=== PATIENT | female | born 1980 | race Caucasian/White ===

== ENCOUNTER 2021-09-23 11:12 | Inpatient (IN) | payer BC, SELFPAY ==
[2021-09-23] VITALS (7 sets, daily range): BP systolic 137–152; BP diastolic 69–75; PULSE 80–103; RESP 15–20; TEMP 37.9–38.5; O2SAT 92–100; BMI 30.8
--- NOTE | ~2021-09-23 | CT_ITS ---
EXAMINATION: CT ABDOMEN AND PELVIS WITHOUT CONTRAST CLINICAL INFORMATION: Left flank pain COMPARISON: None TECHNIQUE: Multidetector volumetric imaging was performed from the superior aspect of the liver through the pubic symphysis. Sagittal and coronal reformatted images were obtained on the technologist's workstation. This CT examination was performed using dose optimization techniques as appropriate, variously including the following: *Automated exposure control *Adjustment of mA and/or kV according to patient size (this includes techniques or standardized protocols for targeted exams where dose is matched to indication/reason for exam; i.e. extremities or head) *Use of iterative reconstruction technique DLP: 685 mGy-cm FINDINGS: LUNG BASES: The visualized lung bases are unremarkable. LIVER, GALLBLADDER, AND BILIARY TREE: The liver is normal in size, shape, and attenuation. There is a 9 mm cyst in hepatic segment 6. No suspicious liver lesions. No intra or extrahepatic biliary ductal dilatation is present. Gallbladder unremarkable. PANCREAS: Unremarkable. SPLEEN: Unremarkable. ADRENAL GLANDS: Unremarkable. KIDNEYS AND URETERS: There is a 4 x 3 mm calculus in the proximal left ureter, near the ureteropelvic junction associated with mild upstream hydronephrosis and perinephric stranding. In addition, there is a 1.7 x 1.6 x 1.4 cm staghorn calculus in the lower pole left kidney, a 4 mm calculus in the mid pole of left kidney and a punctate calculus in the upper pole left kidney. In the right kidney, there are at least 4 nonobstructive intrarenal calculi ranging in size from punctate to 2 mm. BLADDER: Unremarkable. GASTROINTESTINAL TRACT: No intestinal obstruction or inflammation. Submucosal fat deposition throughout the colon. Normal appendix. ABDOMINAL WALL: No significant hernia is appreciated. LYMPH NODES: Normal. VASCULAR: Unremarkable. PELVIC VISCERA: Uterus and adnexa unremarkable. OSSEOUS STRUCTURES: No acute or suspicious osseous abnormalities. CT/CT abdomen pelvis wo con IMPRESSION: * There is a 4 x 3 mm calculus in the proximal LEFT ureter near the ureteropelvic junction associated with mild hydronephrosis and perinephric stranding. * Additional bilateral nonobstructive intrarenal calculi include a 1.7 cm staghorn calculus in the lower pole left kidney. * Nonspecific intramural fatty deposition throughout the colon. This can be seen as a variant finding in the setting of obesity, but can also been seen in association with chronic inflammatory bowel diseases.
--- NOTE | ~2021-09-23 | FL_ITS ---
EXAMINATION: XR FLUOROSCOPY WITH IMAGES CLINICAL INFORMATION: Left ureteroscopy, laser, stent COMPARISON: None. TECHNIQUE: Fluoroscopy performed by Dr. Johnie Reynolds. Fluoroscopy time: 51.8 seconds Images: 1 FINDINGS: The distal aspect of a left ureteral stent is seen on this image. FL/FL guidance in OR IMPRESSION: Fluoroscopic guidance with left ureteral stent placement.
--- NOTE | ~2021-09-23 | XR_ITS ---
EXAMINATION: XR CHEST CLINICAL INFORMATION: Hypoxia COMPARISON: CT abdomen pelvis 09/23/2021 TECHNIQUE: Frontal view of the chest was obtained. FINDINGS: Compared to the prior CT scan, there is been a dramatic change in the appearance of the lungs diffuse airspace opacities involving all segments. Given the rapidity of change I suspect that this may represent pulmonary edema. Heart size within normal limits. No pleural effusions are seen. XR/XR chest 1V IMPRESSION: Diffuse pulmonary airspace opacities suggesting pulmonary edema. Infectious etiologies, although possible, seem less likely given the rapidity of appearance.
--- NOTE | ~2021-09-23 | XR_ITS ---
EXAMINATION: XR CHEST CLINICAL INFORMATION: Short of breath COMPARISON: 09/24/2021 TECHNIQUE: Frontal view of the chest was obtained. FINDINGS: The lungs are well expanded. Bilateral perihilar airspace opacities are again noted, fairly similar to prior. No pleural effusion or pneumothorax. The cardiomediastinal silhouette is within normal limits. XR/XR chest 1V IMPRESSION: Similar appearance of bilateral perihilar airspace opacities.
[2021-09-23 12:35] LABS: Appearance Urine CLOUDY; Color Urine DK YELLOW; Glucose Urine UA NEG (NEG); Leukocyte Esterase Urine 2+ (NEG); Nitrite Urine POS (NEG); Specific Gravity - Urine 1.015 (1.005-1.025); UACC Culture Trigger YES; Urine Blood 3+ (NEG); Urine Ketones NEG (NEG); Urine Protein TRACE MG/DL (NEG-TRACE)
[2021-09-23 12:36] LABS: UPreg QC Valid YES; Urine Pregnancy NEGATIVE (NEGATIVE)
[2021-09-23 12:46] LABS: Bacteria Urine TRACE /LPF; Mucus Urine 2+ /LPF; RBC Urine TNTC /HPF (0); Squamous Epithelial Cell Urine 1+ /LPF
--- NOTE | 2021-09-23 13:14 | ED_ITS ---
HPI - General Adult General Chief complaint: General Medical Stated complaint: kidney stone Time Seen by Provider: 09/23/21 13:05 Source: patient Mode of arrival: ambulatory Limitations: no limitations History of Present Illness HPI narrative: Patient comes to the emergency room complaining of left-sided flank pain for 2-3 days. Patient took azo to help with the pain but she had no relief. Patient has history of kidney stones. Patient states that she cannot tell if she has blood in the urine since she is currently menstruating. Also, patient has been taking Tylenol and ibuprofen but she has had no relief, last dose approximately 7 hours ago. Related Data Allergies Allergy/AdvReac Type Severity Reaction Status Date / Time Iodinated Contrast Media Allergy Unknown Unknown Verified 09/23/21 13:10 Review of Systems Review of Systems: Constitutional : No Weight loss, complaining of chills, No Night Sweats, No Fatigue, No Malaise ENT/Mouth : No Hearing loss, No Ear Pain, No Nasal Congestion, No Sinus Pain, No Hoarseness, No sore throat, No Rhinorrhea, No Swallowing Difficulty Eyes: No Eye Pain, No Swelling, No Redness, No Foreign Body, No Discharge, No Vision Changes Cardiovascular : No Chest Pain, No SOB, No Dyspnea on Exertion, No Orthopnea, No Edema, No Palpitations Respiratory : No Cough, No Sputum, No Wheezing, No Smoke Exposure, No Dyspnea Gastrointestinal : No Nausea, No Vomiting, No Diarrhea, No Constipation, No abdominal Pain, No Hematochezia, No Melena Genitourinary : Currently menstruating, No Dysuria, No Urinary Frequency, unclear if patient has Hematuria due to current menstrual period, No Urinary Incontinence, No Urgency, complaining of bilateral flank pain but more on the left side, No Urinary Flow Changes, No Hesitancy Musculoskeletal : No joint pain, No Myalgias, No Joint Swelling Skin : No Skin Lesions, No rash Neuro : No Weakness, No Numbness, No Paresthesias, No Loss of Consciousness, No Dizziness, No Headache Psych : No Anxiety/Panic, No Depression, No SI/HI/AH/VH, No Social Issues, Heme/Lymph: No Bruising, No Bleeding,No Lymphadenopathy Endocrine : No Polyuria, No Polydipsia, No Temperature Intolerance PMFSH Past Medical History Medical History Kidney stone Social History Social History Advance Directives: Yes Advance Directives Information Provided: Yes Advance Directives on File: No Physical Exam ED Vital Signs: Vital Signs - 24 hr 09/23/21 12:11 Temperature 100.5 F H Pulse Rate 102 H Respiratory Rate 19 Blood Pressure 142/70 H Pulse Oximetry 98 BMI result Body Mass Index 30.8 Const Other: Appearance: Alert. Oriented X3. No acute distress. Eyes: Pupils equal, round and reactive to light. ENT: Pharynx normal. Neck: Normal inspection. Neck supple. No lymph nodes noted. No crepitus CVS: Normal heart rate and rhythm. Pulses normal. Normal S1 and S2 Respiratory: No respiratory distress. Breath sounds normal. No Wheezing. No rales Abdomen: Soft and nontender. No rigidity. No distention. Back: Bilateral flank tenderness Skin: Skin warm and dry. Normal skin color. Normal skin turgor. Extremities: No lower extremity edema. No Lacerations. No Rash Neuro: Oriented X 3. No motor deficit. No sensory deficit. Moving all extremities. No slurred speech. CN 2 through 12 grossly intact Psych: calm, cooperative, normal affect Course Course Course Narrative: So far the urine is positive for UTI. Of patient's labs are pending. Patient is getting IV fluids, Toradol, Tylenol. Patient likely has pyelonephritis, but patient has history of kidney stones, we will go ahead and obtain a CT scan to make sure that she is not passing stones. Patient agrees with plan. I discussed the CT scan with Dr. Reynolds, patient will be admitted, patient had stents tomorrow. Patient will be admitted by Dr. Negron Medical Decision Making Lab Data Result diagrams: 09/23/21 13:20 09/23/21 13:20 Labs: Lab Results 09/23/21 09/23/21 09/23/21 Range/Units 12:15 12:15 13:20 WBC 15.0 H (4.8-10.8) X10*3/uL RBC 4.02 L (4.20-5.50) X10*6/uL Hgb 9.6 L (12.0-16.0) g/dl Hct 31.3 L (37.0-47.0) % MCV 77.9 L (80.0-98.0) fL MCH 23.9 L (27.0-33.0) pg MCHC 30.7 L (31.0-35.0) g/dl RDW 17.6 H (11.0-16.0) % Plt Count 374 (160-400) X10*3/uL MPV 11.3 (9.4-12.3) fL Immature Gran % (Auto) 0.3 (0.0-0.4) % Neut % (Auto) 90.2 H (45-73) % Lymph % (Auto) 4.9 L (20-40) % [place] % (Auto) 4.1 (2-11) % Eos % (Auto) 0.3 (0-4) % Baso % (Auto) 0.2 (0-2) % Lymph # (Auto) 0.7 L (1.2-4.9) X10*3/uL [place] # (Auto) 0.6 (0.1-1.2) X10*3/uL Eos # (Auto) 0.0 (0.0-0.4) X10*3/uL Baso # (Auto) 0.0 (0.0-0.2) X10*3/uL Abs Immat Gran (auto) 0.05 H (0.00-0.03) X10*3/uL Absolute Neuts (auto) 13.5 H (2.0-8.3) x10*3/uL Absolute Nucleated RBC 0.000 (0.0-0.012) X10*3/uL Nucleated RBC % (auto) 0.0 (0.0-0.2) /100WBC Smear Tech's Comments VERIFIED Sodium (135-145) mmol/L Potassium (3.3-5.1) mmol/L Chloride (96-108) mmol/L Carbon Dioxide (22-29) mmol/L Anion Gap (12-20) BUN (9-16) mg/dL Creatinine (0.5-1.4) mg/dL Estim Creat Clear Calc Estimated GFR Random Glucose (60-115) mg/dL Lactic Acid (0.5-2.0) mmol/L Calcium (8.4-10.2) mg/dL Total Bilirubin (0.0-1.0) mg/dL Direct Bilirubin (0.0-0.5) mg/dL AST (5-31) U/L ALT (0-31) U/L Alkaline Phosphatase (39-117) U/L Total Protein (6.5-8.0) g/dL Albumin (3.5-5.0) g/dL Lipase (8-78) U/L Urine Color DK YELLOW Urine Appearance CLOUDY Urine pH 6.0 (5.0-8.0) Ur Specific [place] 1.015 (1.005-1.025) Urine Protein TRACE (NEG-TRACE) MG/DL Urine Glucose (UA) NEG (NEG) MG/DL Urine Ketones NEG (NEG) MG/DL Urine Blood 3+ H (NEG) Urine Nitrite POS H (NEG) Ur Leukocyte Esterase 2+ H (NEG) Urine RBC TNTC H (0) /HPF Urine WBC 15-29 H (0-4) /HPF Ur Squamous Epith Cells 1+ /LPF Urine Bacteria TRACE /LPF Urine Mucus 2+ /LPF Urine Test NEGATIVE (NEGATIVE) 09/23/21 09/23/21 Range/Units 13:20 13:23 WBC (4.8-10.8) X10*3/uL RBC (4.20-5.50) X10*6/uL Hgb (12.0-16.0) g/dl Hct (37.0-47.0) % MCV (80.0-98.0) fL MCH (27.0-33.0) pg MCHC (31.0-35.0) g/dl RDW (11.0-16.0) % Plt Count (160-400) X10*3/uL MPV (9.4-12.3) fL Immature Gran % (Auto) (0.0-0.4) % Neut % (Auto) (45-73) % Lymph % (Auto) (20-40) % [place] % (Auto) (2-11) % Eos % (Auto) (0-4) % Baso % (Auto) (0-2) % Lymph # (Auto) (1.2-4.9) X10*3/uL [place] # (Auto) (0.1-1.2) X10*3/uL Eos # (Auto) (0.0-0.4) X10*3/uL Baso # (Auto) (0.0-0.2) X10*3/uL Abs Immat Gran (auto) (0.00-0.03) X10*3/uL Absolute Neuts (auto) (2.0-8.3) x10*3/uL Absolute Nucleated RBC (0.0-0.012) X10*3/uL Nucleated RBC % (auto) (0.0-0.2) /100WBC Smear Tech's Comments Sodium 138 (135-145) mmol/L Potassium 4.2 (3.3-5.1) mmol/L Chloride 106 (96-108) mmol/L Carbon Dioxide 22 (22-29) mmol/L Anion Gap 14 (12-20) BUN 13 (9-16) mg/dL Creatinine 0.81 (0.5-1.4) mg/dL Estim Creat Clear Calc 98.9 Estimated GFR > 60 Random Glucose 95 (60-115) mg/dL Lactic Acid 0.9 (0.5-2.0) mmol/L Calcium 9.5 (8.4-10.2) mg/dL Total Bilirubin < 0.2 (0.0-1.0) mg/dL Direct Bilirubin < 0.2 (0.0-0.5) mg/dL AST 17 (5-31) U/L ALT 11 (0-31) U/L Alkaline Phosphatase 94 (39-117) U/L Total Protein 7.5 (6.5-8.0) g/dL Albumin 4.4 (3.5-5.0) g/dL Lipase 10 (8-78) U/L Urine Color Urine Appearance Urine pH (5.0-8.0) Ur Specific [place] (1.005-1.025) Urine Protein (NEG-TRACE) MG/DL Urine Glucose (UA) (NEG) MG/DL Urine Ketones (NEG) MG/DL Urine Blood (NEG) Urine Nitrite (NEG) Ur Leukocyte Esterase (NEG) Urine RBC (0) /HPF Urine WBC (0-4) /HPF Ur Squamous Epith Cells /LPF Urine Bacteria /LPF Urine Mucus /LPF Urine Test (NEGATIVE) Imaging Data US - abdomen: Radiologist's impression: DLP: 685 mGy-cm FINDINGS: LUNG BASES: The visualized lung bases are unremarkable.? LIVER, GALLBLADDER, AND BILIARY TREE: The liver is normal in size, shape, and attenuation. There is a 9 mm cyst in hepatic segment 6. No suspicious liver lesions. No intra or extrahepatic biliary ductal dilatation is present. Gallbladder unremarkable.? PANCREAS: Unremarkable.? SPLEEN: Unremarkable.? ADRENAL GLANDS: Unremarkable.? KIDNEYS AND URETERS: There is a 4 x 3 mm calculus in the proximal left ureter, near the ureteropelvic junction associated with mild upstream hydronephrosis and perinephric stranding. In addition, there is a 1.7 x 1.6 x 1.4 cm staghorn calculus in the lower pole left kidney, a 4 mm calculus in the mid pole of left kidney and a punctate calculus in the upper pole left kidney. In the right kidney, there are at least 4 nonobstructive intrarenal calculi ranging in size from punctate to 2 mm.? BLADDER: Unremarkable.? GASTROINTESTINAL TRACT: No intestinal obstruction or inflammation. Submucosal fat deposition throughout the colon. Normal appendix.? ABDOMINAL WALL: No significant hernia is appreciated.? LYMPH NODES: Normal. VASCULAR: Unremarkable. PELVIC VISCERA: Uterus and adnexa unremarkable.? OSSEOUS STRUCTURES: No acute or suspicious osseous abnormalities.? CT/CT abdomen pelvis wo con IMPRESSION: *? There is a 4 x 3 mm calculus in the proximal LEFT ureter near the ureteropelvic junction associated with mild hydronephrosis and perinephric stranding. *? Additional bilateral nonobstructive intrarenal calculi include a 1.7 cm staghorn calculus in the lower pole left kidney. *? Nonspecific intramural fatty deposition throughout the colon. This can be seen as a variant finding in the setting of obesity, but can also been seen in association with chronic inflammatory bowel diseases. Discharge Plan Discharge Clinical Impression: Pyelonephritis, Ureterolithiasis Patient Disposition: Admitted As Inpatient
[2021-09-23] MEDS: Ketorolac Tromethamine 30 MG/ML VIAL IVPUSH (13:28)
[2021-09-23] MEDS: Acetaminophen 325 MG TABLET 650 MG PO ×2 (13:28→21:38)
[2021-09-23] MEDS: levoFLOXacin 500 MG TABLET PO (13:29)
[2021-09-23] MEDS: 0.9 % Sodium Chloride 1,000 ML 999 ML IVCONT (13:30)
[2021-09-23 13:32] LABS: Basophils Percent Auto 0.2 % (0-2); Eosinophils Percent Auto 0.3 % (0-4); Hematocrit 31.3 % (37.0-47.0); Hemoglobin 9.6 g/dl (12.0-16.0); Imm Gran Abs Auto 0.05 X10*3/uL (0.00-0.03); Imm Gran Pct Auto 0.3 % (0.0-0.4); Lymphocytes Absolute Auto 0.7 X10*3/uL (1.2-4.9); Lymphocytes Percent Auto 4.9 % (20-40); MANUAL DIFF FLAG SCAN; Mean Corpuscular HGB Conc 30.7 g/dl (31.0-35.0); Mean Corpuscular Hemoglobin 23.9 pg (27.0-33.0); Mean Corpuscular Volume 77.9 fL (80.0-98.0); Mean Platelet Volume 11.3 fL (9.4-12.3); Monocytes Absolute Auto 0.6 X10*3/uL (0.1-1.2); Monocytes Percent Auto 4.1 % (2-11); Neutrophils Absolute Auto 13.5 x10*3/uL (2.0-8.3); Neutrophils Percent Auto 90.2 % (45-73); Platelet Count 374 X10*3/uL (160-400); Red Blood Count 4.02 X10*6/uL (4.20-5.50); Red Cell Distribution Width 17.6 % (11.0-16.0); SCAN SMEAR FLAG 1
[2021-09-23 13:51] LABS: Lactic Acid 0.9 mmol/L (0.5-2.0)
[2021-09-23 14:01] LABS: Alanine Aminotransferase 11 U/L (0-31); Albumin Level 4.4 g/dL (3.5-5.0); Alkaline Phosphatase 94 U/L (39-117); Anion Gap 14 (12-20); Aspartate Amino Transferase 17 U/L (5-31); Bilirubin Direct < 0.2 mg/dL (0.0-0.5); Bilirubin Total < 0.2 mg/dL (0.0-1.0); Blood Urea Nitrogen 13 mg/dL (9-16); Calcium 9.5 mg/dL (8.4-10.2); Carbon Dioxide 22 mmol/L (22-29); Chloride 106 mmol/L (96-108); Creatinine Clr Calc Pharmacy 98.9; Estimated Glomerular Filt Rate > 60; Glucose Random 95 mg/dL (60-115); Lipase 10 U/L (8-78); Potassium 4.2 mmol/L (3.3-5.1); Sodium 138 mmol/L (135-145); Total Protein 7.5 g/dL (6.5-8.0)
[2021-09-23 14:31] LABS: SLIDE REVIEW VERIFIED
--- NOTE | 2021-09-23 16:40 | PHA.MEDREC ---
Pharmacy Consult ? Medication Reconciliation Pharmacy has completed the medication reconciliation.
--- NOTE | 2021-09-23 17:10 | PM.IMHP ---
History of Present Illness Date of Service: 09/23/21 Chief Complaint: Back pain, fever a 40 years old healthy lady who presents to the hospital with left-sided flank pain for the last 3 days. The patient reports that she started to colicky left-sided slowing and back pain for the last 3 days which has been progressive associated with nausea and episode of vomiting with subjective fever that turned to be above 100 today. She reported is the 1st time she is going through with this event but she had passed stones before with much lower pain level. She tried [id number] Tylenol and Advil with no improvement. In the emergency she was fine febrile, tachycardic with evidence of urine infection. CT scan was consistent with to stones in her left ureter and evidence of pyelonephritis. Started IV antibiotics admitted for further evaluation. Review of Systems Review of Systems: Reporting fever, chills and generalized weakness No chest pain, palpitation No shortness of breath or coughing No abdominal pain, nausea or vomiting having left-sided low in and back pain with no clear urinary symptoms No any rash or wounds PMFSH Medical History Kidney stone Social History Advance Directives: Yes Advance Directives Information Provided: Yes Advance Directives on File: No Meds Allergies Allergy/AdvReac Type Severity Reaction Status Date / Time Iodinated Contrast Media Allergy Unknown Unknown Verified 09/23/21 13:10 Active Medications: Current Medications Pharmacy Consult (Consult Rx Perform Med Rec) 1 each MISCELLANE ONCE PRN PRN Reason: Consult order Home Medications Medication Instructions Recorded Confirmed Last Taken Type No Known Home Meds 09/23/21 09/23/21 Unknown History Physical Exam Vital Signs and Narrative: Vital Signs: Last Vital Signs Temp 100.5 F H 09/23/21 12:11 Pulse 102 H 09/23/21 12:11 Resp 19 09/23/21 12:11 BP 142/70 H 09/23/21 12:11 Pulse Ox 98 09/23/21 12:11 BMI result Body Mass Index 30.8 Const: Other: Constitutional : Alert, oriented, not in distress Neck : Normal inspection, Supple Cardiovascular : RRR, no JVP, no lower extremity edema, tachycardia Respiratory : fair bilateral air entry, no crackles, wheezes or rhonchi Gastrointestinal: soft, lax, Normal bowel sounds, Non tender Skin : Warm, Dry Urology: positive CVA tenderness Neurological : Alert & oriented x3, No focal deficit , CN 2-12 within normal Results Labs CBC and Chem 7: 09/23/21 13:20 09/23/21 13:20 Labs: Laboratory Results - last 24 hr 09/23/21 09/23/21 09/23/21 12:15 12:15 13:20 MCV 77.9 L MCH 23.9 L MCHC 30.7 L RDW 17.6 H Plt Count 374 MPV 11.3 Immature Gran % (Auto) 0.3 Neut % (Auto) 90.2 H Lymph % (Auto) 4.9 L [place] % (Auto) 4.1 Eos % (Auto) 0.3 Baso % (Auto) 0.2 Lymph # (Auto) 0.7 L [place] # (Auto) 0.6 Eos # (Auto) 0.0 Baso # (Auto) 0.0 Abs Immat Gran (auto) 0.05 H Absolute Neuts (auto) 13.5 H Absolute Nucleated RBC 0.000 Nucleated RBC % (auto) 0.0 Smear Tech's Comments VERIFIED Anion Gap Estim Creat Clear Calc Estimated GFR Random Glucose Lactic Acid Calcium Total Bilirubin Direct Bilirubin AST ALT Alkaline Phosphatase Total Protein Albumin Lipase Urine Color DK YELLOW Urine Appearance CLOUDY Urine pH 6.0 Ur Specific [place] 1.015 Urine Protein TRACE Urine Glucose (UA) NEG Urine Ketones NEG Urine Blood 3+ H Urine Nitrite POS H Ur Leukocyte Esterase 2+ H Urine RBC TNTC H Urine WBC 15-29 H Ur Squamous Epith Cells 1+ Urine Bacteria TRACE Urine Mucus 2+ Urine Test NEGATIVE 09/23/21 09/23/21 13:20 13:23 MCV MCH MCHC RDW Plt Count MPV Immature Gran % (Auto) Neut % (Auto) Lymph % (Auto) [place] % (Auto) Eos % (Auto) Baso % (Auto) Lymph # (Auto) [place] # (Auto) Eos # (Auto) Baso # (Auto) Abs Immat Gran (auto) Absolute Neuts (auto) Absolute Nucleated RBC Nucleated RBC % (auto) Smear Tech's Comments Anion Gap 14 Estim Creat Clear Calc 98.9 Estimated GFR > 60 Random Glucose 95 Lactic Acid 0.9 Calcium 9.5 Total Bilirubin < 0.2 Direct Bilirubin < 0.2 AST 17 ALT 11 Alkaline Phosphatase 94 Total Protein 7.5 Albumin 4.4 Lipase 10 Urine Color Urine Appearance Urine pH Ur Specific [place] Urine Protein Urine Glucose (UA) Urine Ketones Urine Blood Urine Nitrite Ur Leukocyte Esterase Urine RBC Urine WBC Ur Squamous Epith Cells Urine Bacteria Urine Mucus Urine Test Imaging Radiologist's Impressions: Impressions Abdomen/Pelvis CT 09/23/21 14:29 IMPRESSION: * There is a 4 x 3 mm calculus in the proximal LEFT ureter near the ureteropelvic junction associated with mild hydronephrosis and perinephric stranding. * Additional bilateral nonobstructive intrarenal calculi include a 1.7 cm staghorn calculus in the lower pole left kidney. * Nonspecific intramural fatty deposition throughout the colon. This can be seen as a variant finding in the setting of obesity, but can also been seen in association with chronic inflammatory bowel diseases. Assessment and Plan (1) Sepsis: Status: Acute (2) Pyelonephritis: Status: Acute (3) Ureterolithiasis: Status: Acute (4) Hydronephrosis of left kidney: Status: Acute Plan a 40 years old healthy lady who presents to the hospital with left-sided flank pain for the last 3 days. Sepsis secondary to pyelonephritis Fever, tachycardia and leukocytosis Negative lactic acid pending cultures Continue IV antibiotics of Levaquin hydronephrosis with ureteric stone CT scan reporting staghorn stone and a smaller rounded stone Discussed with Urology, to keep the patient NPO for possible stent placement tomorrow anemia Hemoglobin of 9.6 with low MCV Check iron studies DVT PPX Early ambulation Quality Stroke Does the patient have a stroke diagnosis?: No VTE Prior VTE?: No VTE Risk Level:: Medical - low VTE Device Contraindication: Treatment Not Indicated VTE Drug Contraindication: Treatment Not Indicated
[2021-09-23 18:14] LABS: Iron 15 mcg/dL (30-160); Percent Iron Saturation 4 % (15-50); Total Iron Binding Capacity 420 mcg/dL (228-428); Unsaturated Iron Binding 405 ug/dL
--- NOTE | 2021-09-23 18:32 | PC.NURSE ---
provider made aware of temp 101.3. Awaiting further orders.
[2021-09-23] MEDS: Ketorolac Tromethamine 30 MG/ML VIAL 15 MG IVPUSH (18:49)
[2021-09-23 18:52] LABS: COVID-19 Test Negative (Negative)
--- NOTE | 2021-09-23 20:14 | MHC.CM.PN ---
CM met with admitted patient with bed assignment pending. 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 [employer]. No HCP on file. HCP/ Xu Adam ([phone]). Copy requested. Lives with and son. No DME or services. D/C plan: Home without services. Family to transport. CM to follow for d/c needs.
--- NOTE | 2021-09-23 23:51 | PC.NURSE ---
Report given to FATUMA Bishop on .
[2021-09-24] VITALS (32 sets, daily range): BP systolic 97–191; BP diastolic 51–82; PULSE 78–158; RESP 16–36; TEMP 35.9–39.5; O2SAT 92–100
[2021-09-24] MEDS: 0.9 % Sodium Chloride Flush 3 ML SYRINGE IVFLUSH ×2 (02:15→09:21)
[2021-09-24] MEDS: Acetaminophen Oral Liquid 650 MG/20.3 ML SOLUTION PO (03:31)
[2021-09-24] MEDS: Ketorolac Tromethamine 30 MG/ML VIAL 15 MG IVPUSH ×3 (03:35→18:49)
--- NOTE | 2021-09-24 03:56 | PC.NURSE ---
Pt on scheduled tylenol po q 6 hr.Pt requesting liquid tylenol beacause tablets make her nauseous. notified changed tylenol to lquid form.given at 0330 for temp-101.9.
--- NOTE | 2021-09-24 05:16 | PC.NURSE ---
temp down to 97.1 orally
[2021-09-24 05:47] LABS: Hematocrit 28.1 % (37.0-47.0); Hemoglobin 8.8 g/dl (12.0-16.0); Mean Corpuscular HGB Conc 31.3 g/dl (31.0-35.0); Mean Corpuscular Hemoglobin 24.1 pg (27.0-33.0); Mean Platelet Volume 11.3 fL (9.4-12.3); Platelet Count 325 X10*3/uL (160-400); Red Blood Count 3.65 X10*6/uL (4.20-5.50); Red Cell Distribution Width 17.3 % (11.0-16.0); White Blood Count 13.4 X10*3/uL (4.8-10.8)
[2021-09-24 06:05] LABS: Anion Gap 13 (12-20); Blood Urea Nitrogen 11 mg/dL (9-16); Calcium 8.8 mg/dL (8.4-10.2); Carbon Dioxide 21 mmol/L (22-29); Chloride 106 mmol/L (96-108); Creatinine Clr Calc Pharmacy 89.9; Estimated Glomerular Filt Rate > 60; Glucose Random 141 mg/dL (60-115); Potassium 3.8 mmol/L (3.3-5.1); Sodium 136 mmol/L (135-145)
--- NOTE | 2021-09-24 12:38 | P.CNUR_ITS ---
History of Present Illness Consult details Consult date: 09/24/21 Narrative: Chaka is a pleasant female. Presents with left-sided flank pain inability to maintain oral intake CT scan shows collection of stones in left side with left UPJ stone Has been diagnosed with stones since 2016 No prior intervention Family history of stones Given current state of symptoms and imaging findings would recommend intervention with left-sided ureteroscopy and laser lithotripsy Review of Systems Constitutional: Constitutional: Denies chills and Denies fever(s) Cardiovascular: Cardiovascular: Reports no additional cardiovascular complaints and Denies syncope Respiratory: Respiratory: Denies cough Gastrointestinal: Gastrointestinal: Denies abdominal pain and Denies heartburn Genitourinary: Genitourinary: Reports as per HPI and Denies change in libido Neurologic: Denies syncope Psychiatric: Psychiatric: Denies change in libido Endocrine: Endocrine: Denies change in libido COUNT INCLUDES THE [facility] Past Medical History Medical History Kidney stone Social History Social History Household Members: Family Housing: House Do you presently have visiting nurse or other home services: No Patient Tobacco Use Status: Never used Tobacco Advance Directives Date on File: 09/24/21 service: No Current occupational status: employed Meds Allergies Allergy/AdvReac Type Severity Reaction Status Date / Time Iodinated Contrast Media Allergy Unknown Unknown Verified 09/23/21 13:10 Latex, Natural Rubber Allergy Unknown Verified 09/24/21 03:48 shell fish Allergy Unknown Uncoded 09/24/21 03:48 Active Medications: Current Medications Acetaminophen (Acetaminophen Oral Liquid 650 Mg/20.3 Ml Solution) 650 mg PO Q6H PRN PRN Reason: Pain, Severe (Pain Scale 7-10) Last Admin: 09/24/21 03:31 Dose: 650 mg Documented by: Ferrous Sulfate (Ferrous Sulfate 324 Mg Tablet.Dr) 324 mg PO BIDWM [facility] Ketorolac Tromethamine (Ketorolac Tromethamine 30 Mg/Ml Vial) 15 mg IVPUSH Q6H PRN PRN Reason: Pain, Moderate (Pain Scale 4-6 Stop: 09/28/21 17:06 Last Admin: 09/24/21 09:23 Dose: 15 mg Documented by: Ondansetron HCl (Ondansetron Hcl 4 Mg/2 Ml Vial) 4 mg IVPUSH Q8H PRN PRN Reason: Nausea and Vomiting Pharmacy Consult (Consult Rx Perform Med Rec) 1 each MISCELLANE ONCE PRN PRN Reason: Consult order Sodium Chloride (0.9 % Sodium Chloride Flush 3 Ml Syringe) 3 ml LAUREN PONCE [facility] Last Admin: 09/24/21 09:21 Dose: 3 ml Documented by: Home Medications Medication Instructions Recorded Confirmed Last Taken Type No Known Home Meds 09/23/21 09/23/21 Unknown History Physical Exam Vital Signs: Vital Signs: Last Vital Signs Temp 98.5 F 09/24/21 11:48 Pulse 120 H 09/24/21 11:48 Resp 18 09/24/21 11:48 BP 135/64 09/24/21 11:48 Pulse Ox 100 09/24/21 11:48 BMI result Body Mass Index 30.8 Const: General: cooperative, healthy appearing, comfortable and no acute distress Orientation/consciousness: patient oriented x3 HEENT: Face and sinus: Yes normal facial exam Mouth: moist mucous membranes Neck: Neck: Yes normal visual inspection, Yes full ROM and Yes trachea midline Chest: Chest palpation & inspection: normal inspection of the chest Resp: Effort & Inspection: normal respiratory effort, able to speak in complete sentences and no respiratory distress GI: Inspection: Yes normal to inspection Back/Spine/Pelvis: Cervical Spine: normal cervical lordosis Thoracic/Lumbar Spine: thoracic and lumbar spine normal to inspection Skin: General skin exam: no rashes or lesions noted Neuro: General: patient oriented x3, gait normal, tone normal and moves all extremities Extrem: General: Yes normal to inspection and Yes capillary refill normal Results Labs Result diagrams: 09/24/21 05:12 09/24/21 05:12 Labs: Abnormal lab results 09/23/21 09/23/21 09/23/21 Range/Units 12:15 13:20 13:20 WBC 15.0 H (4.8-10.8) X10*3/uL RBC 4.02 L (4.20-5.50) X10*6/uL Hgb 9.6 L (12.0-16.0) g/dl Hct 31.3 L (37.0-47.0) % MCV 77.9 L (80.0-98.0) fL MCH 23.9 L (27.0-33.0) pg MCHC 30.7 L (31.0-35.0) g/dl RDW 17.6 H (11.0-16.0) % Neut % (Auto) 90.2 H (45-73) % Lymph % (Auto) 4.9 L (20-40) % Lymph # (Auto) 0.7 L (1.2-4.9) X10*3/uL Abs Immat Gran (auto) 0.05 H (0.00-0.03) X10*3/uL Absolute Neuts (auto) 13.5 H (2.0-8.3) x10*3/uL Carbon Dioxide (22-29) mmol/L Random Glucose (60-115) mg/dL Iron 15 L (30-160) mcg/dL % Saturation 4 L (15-50) % Urine Blood 3+ H (NEG) Urine Nitrite POS H (NEG) Ur Leukocyte Esterase 2+ H (NEG) Urine RBC TNTC H (0) /HPF Urine WBC 15-29 H (0-4) /HPF 09/24/21 09/24/21 Range/Units 05:12 05:12 WBC 13.4 H (4.8-10.8) X10*3/uL RBC 3.65 L (4.20-5.50) X10*6/uL Hgb 8.8 L (12.0-16.0) g/dl Hct 28.1 L (37.0-47.0) % MCV 77.0 L (80.0-98.0) fL MCH 24.1 L (27.0-33.0) pg MCHC (31.0-35.0) g/dl RDW 17.3 H (11.0-16.0) % Neut % (Auto) (45-73) % Lymph % (Auto) (20-40) % Lymph # (Auto) (1.2-4.9) X10*3/uL Abs Immat Gran (auto) (0.00-0.03) X10*3/uL Absolute Neuts (auto) (2.0-8.3) x10*3/uL Carbon Dioxide 21 L (22-29) mmol/L Random Glucose 141 H (60-115) mg/dL Iron (30-160) mcg/dL % Saturation (15-50) % Urine Blood (NEG) Urine Nitrite (NEG) Ur Leukocyte Esterase (NEG) Urine RBC (0) /HPF Urine WBC (0-4) /HPF Short CBC 09/23/21 09/24/21 Range/Units 13:20 05:12 WBC 15.0 H 13.4 H (4.8-10.8) X10*3/uL Hgb 9.6 L 8.8 L (12.0-16.0) g/dl Hct 31.3 L 28.1 L (37.0-47.0) % Plt Count 374 325 (160-400) X10*3/uL BMP 09/23/21 09/24/21 13:20 05:12 Sodium 138 136 Potassium 4.2 3.8 Chloride 106 106 Carbon Dioxide 22 21 L BUN 13 11 Creatinine 0.81 0.89 Calcium 9.5 8.8 D Liver Function 09/23/21 Range/Units 13:20 Total Bilirubin < 0.2 (0.0-1.0) mg/dL Direct Bilirubin < 0.2 (0.0-0.5) mg/dL AST 17 (5-31) U/L ALT 11 (0-31) U/L Alkaline Phosphatase 94 (39-117) U/L Albumin 4.4 (3.5-5.0) g/dL Urine 09/23/21 09/23/21 Range/Units 12:15 12:15 Urine Color DK YELLOW Urine Appearance CLOUDY Urine pH 6.0 (5.0-8.0) Ur Specific [place] 1.015 (1.005-1.025) Urine Protein TRACE (NEG-TRACE) MG/DL Urine Glucose (UA) NEG (NEG) MG/DL Urine Test NEGATIVE (NEGATIVE) All other labs normal. Assessment and Plan (1) Hydronephrosis of left kidney: Status: Acute (2) Ureterolithiasis: Status: Acute Plan Ureteroscopy We discussed the nature of the decision and reasonable alternatives for performing the above surgery. Interventions include chemical dissolution, ESWL, ureteroscopy with laser lithotripsy and stent placement, PCNL. Options such as medical therapy were discussed. The relative uncertainties and benefits related to each alternate procedure were adequately discussed. General surgical risks including, but not limited to, pain, bleeding, infection, myocardial infarction, pulmonary embolus, deep vein thrombosis and cerebrovascular accident which may result in further hospitalization were discussed. Full disclosure of the procedure as well as all major risks, benefits and complications were discussed including but not limited to damage to the urethra, bladder and kidney infection, damage to the ureter, stent migration or malposition, scarring to the renal pelvis, remnant stone fragments, subsequent stone passage with need for secondary procedures. The overall secondary procedure rate is approximately 10-15%. The success rate of the procedure was discussed. Success of the procedure in the short-term does not necessarily guarantee that long-term success will be maintained. Suitable follow up will need to be maintained. The patient showed understanding of discussion and wishes to proceed with - cystoscopy, retrograde, ureteroscopy, possible lithotripsy/stone basketing and stent on the left side Procedures Date of Service Date of Service: 09/24/21
--- NOTE | 2021-09-24 12:40 | MHC.SHP ---
Pre-Procedural Eval Section A Date of Service: 09/24/21 The patient is an INPATIENT: Yes Changes since office visit: No Cold of Flu in the past 2 weeks, No New Medical Problems, No Changes in Medication and No Patient answered all questions The History & Physical has been completed within 30 days and I have reviewed it.: Yes Section B Chief Complaint: back pain,fever Allergies: Allergies Allergy/AdvReac Type Severity Reaction Status Date / Time Iodinated Contrast Media Allergy Unknown Unknown Verified 09/23/21 13:10 Latex, Natural Rubber Allergy Unknown Verified 09/24/21 03:48 shell fish Allergy Unknown Uncoded 09/24/21 03:48 Plan Diagnosis/Plan: Unchanged ( cystoscopy, left retrograde, left ureteroscopy with laser lithotripsy stent placement) I have reviewed the history and physical and performed a pertinent physical examination on my patient. No changes have occurred unless specified.
--- NOTE | 2021-09-24 12:51 | HO.PM.IMPN ---
Subjective Subjective Date of Service: 09/24/21 Interval History: the patient was seen and evaluated this morning Laying in bed, Pain is better controlled She spiked fever overnight with doing better this morning No reported other overnight events. Review of Systems Reporting fever, chills and generalized weakness No chest pain, palpitation No shortness of breath or coughing No abdominal pain, nausea or vomiting improved left-sided low in and back pain with no clear urinary symptoms No any rash or wounds Physical Exam Vital Signs: Vital Signs: Last Vital Signs Temp 99.1 F 09/24/21 12:41 Pulse 106 H 09/24/21 12:41 Resp 16 09/24/21 12:41 BP 154/71 H 09/24/21 12:41 Pulse Ox 100 09/24/21 12:41 BMI result Body Mass Index 30.8 Const: Other: Constitutional : Alert, oriented, not in distress Neck : Normal inspection, Supple Cardiovascular : RRR, no JVP, no lower extremity edema, tachycardia Respiratory : fair bilateral air entry, no crackles, wheezes or rhonchi Gastrointestinal: soft, lax, Normal bowel sounds, Non tender Skin : Warm, Dry Urology: positive CVA tenderness Neurological : Alert & oriented x3, No focal deficit , CN 2-12 within normal Objective Data Active Medications Acetaminophen (Acetaminophen Oral Liquid 650 Mg/20.3 Ml Solution) 650 mg PO Q6H PRN PRN Reason: Pain, Severe (Pain Scale 7-10) Last Admin: 09/24/21 03:31 Dose: 650 mg Documented by: GRETA Ferrous Sulfate (Ferrous Sulfate 324 Mg Tablet.Dr) 324 mg PO BIDWM [facility] Ketorolac Tromethamine (Ketorolac Tromethamine 30 Mg/Ml Vial) 15 mg IVPUSH Q6H PRN PRN Reason: Pain, Moderate (Pain Scale 4-6 Stop: 09/28/21 17:06 Last Admin: 09/24/21 09:23 Dose: 15 mg Documented by: ALLI Ondansetron HCl (Ondansetron Hcl 4 Mg/2 Ml Vial) 4 mg IVPUSH Q8H PRN PRN Reason: Nausea and Vomiting Pharmacy Consult (Consult Rx Perform Med Rec) 1 each MISCELLANE ONCE PRN PRN Reason: Consult order Sodium Chloride (0.9 % Sodium Chloride Flush 3 Ml Syringe) [facility] Last Admin: 09/24/21 09:21 Dose: 3 ml Documented by: ALLI Labs CBC & Chem 7: 09/24/21 05:12 09/24/21 05:12 Labs: Laboratory Results - last 24 hr 09/23/21 09/23/21 09/23/21 13:20 13:20 13:23 MCV 77.9 L MCH 23.9 L MCHC 30.7 L RDW 17.6 H Plt Count 374 MPV 11.3 Immature Gran % (Auto) 0.3 Neut % (Auto) 90.2 H Lymph % (Auto) 4.9 L [place] % (Auto) 4.1 Eos % (Auto) 0.3 Baso % (Auto) 0.2 Lymph # (Auto) 0.7 L [place] # (Auto) 0.6 Eos # (Auto) 0.0 Baso # (Auto) 0.0 Abs Immat Gran (auto) 0.05 H Absolute Neuts (auto) 13.5 H Absolute Nucleated RBC 0.000 Nucleated RBC % (auto) 0.0 Smear Tech's Comments VERIFIED Anion Gap 14 Estim Creat Clear Calc 98.9 Estimated GFR > 60 Random Glucose 95 Lactic Acid 0.9 Calcium 9.5 Iron 15 L TIBC 420 % Saturation 4 L Unsat Iron Binding 405 Total Bilirubin < 0.2 Direct Bilirubin < 0.2 AST 17 ALT 11 Alkaline Phosphatase 94 Total Protein 7.5 Albumin 4.4 Lipase 10 COVID-19 ([facility]) COVID-19 Clin Com 09/23/21 09/24/21 09/24/21 18:21 05:12 05:12 MCV 77.0 L MCH 24.1 L MCHC 31.3 RDW 17.3 H Plt Count 325 MPV 11.3 Immature Gran % (Auto) Neut % (Auto) Lymph % (Auto) [place] % (Auto) Eos % (Auto) Baso % (Auto) Lymph # (Auto) [place] # (Auto) Eos # (Auto) Baso # (Auto) Abs Immat Gran (auto) Absolute Neuts (auto) Absolute Nucleated RBC 0.000 Nucleated RBC % (auto) 0.0 Smear Tech's Comments Anion Gap 13 Estim Creat Clear Calc 89.9 Estimated GFR > 60 Random Glucose 141 H Lactic Acid Calcium 8.8 D Iron TIBC % Saturation Unsat Iron Binding Total Bilirubin Direct Bilirubin AST ALT Alkaline Phosphatase Total Protein Albumin Lipase COVID-19 ([facility]) Negative COVID-19 Clin Com See Note Microbiology Microbiology Results: Microbiology 09/23/21 00:00 Urine Culture - Preliminary Urine clean catch - Urine mack top Assessment and Plan (1) Hydronephrosis of left kidney: Status: Acute (2) Sepsis: Status: Acute (3) Pyelonephritis: Status: Acute Plan a 40 years old healthy lady who presents to the hospital with left-sided flank pain for the last 3 days. Sepsis, resolved secondary to pyelonephritis pending cultures Continue IV antibiotics of Levaquin hydronephrosis with ureteric stone CT scan reporting staghorn stone and a smaller rounded stone Urology, Will for cystoscopy and stent placement tomorrow iron deficiency anemia Hemoglobin of 9.6 with low MCV low iron stores Start p.o. ferrous sulfate DVT PPX Early ambulation Quality Stroke Does the patient have a stroke diagnosis?: No VTE Prior VTE?: No VTE Risk Level:: Medical - low VTE Device Contraindication: Treatment Not Indicated VTE Drug Contraindication: Treatment Not Indicated
--- NOTE | 2021-09-24 12:57 | HO.ANESPROP2 ---
[facility] Active Problems Active Problems: All Active Problems (Updated 09/23/21 @ 17:45 by Cher Negron MD) Hydronephrosis of left kidney (Acute) Sepsis (Acute) Pyelonephritis (Acute) Ureterolithiasis (Acute) anemia Past Medical History Medical History Kidney stone Surgical History History of Problems with Anesthesia: No Social History Social History Household Members: Family Housing: House Do you presently have visiting nurse or other home services: No Patient Tobacco Use Status: Never used Tobacco Advance Directives Date on File: 09/24/21 service: No Current occupational status: employed Meds Allergies Allergy/AdvReac Type Severity Reaction Status Date / Time Iodinated Contrast Media Allergy Unknown Unknown Verified 09/23/21 13:10 Latex, Natural Rubber Allergy Unknown Verified 09/24/21 03:48 shell fish Allergy Unknown Uncoded 09/24/21 03:48 Active Medications: Current Medications Acetaminophen (Acetaminophen Oral Liquid 650 Mg/20.3 Ml Solution) 650 mg PO Q6H PRN PRN Reason: Pain, Severe (Pain Scale 7-10) Last Admin: 09/24/21 03:31 Dose: 650 mg Documented by: Ferrous Sulfate (Ferrous Sulfate 324 Mg Tablet.Dr) 324 mg PO BIDWM [facility] Ketorolac Tromethamine (Ketorolac Tromethamine 30 Mg/Ml Vial) 15 mg IVPUSH Q6H PRN PRN Reason: Pain, Moderate (Pain Scale 4-6 Stop: 09/28/21 17:06 Last Admin: 09/24/21 09:23 Dose: 15 mg Documented by: Ondansetron HCl (Ondansetron Hcl 4 Mg/2 Ml Vial) 4 mg IVPUSH Q8H PRN PRN Reason: Nausea and Vomiting Pharmacy Consult (Consult Rx Perform Med Rec) 1 each MISCELLANE ONCE PRN PRN Reason: Consult order Sodium Chloride (0.9 % Sodium Chloride Flush 3 Ml Syringe) [facility] Last Admin: 09/24/21 09:21 Dose: 3 ml Documented by: Home Medications Medication Instructions Recorded Confirmed Last Taken Type No Known Home Meds 09/23/21 09/23/21 Unknown History Exam Exam Date and Time: September 24, 2021 1257 Height,Weight and Vital Signs: Height 5 ft 5 in Weight 84.1 kg Last Vital Signs Temp 99.1 F 09/24/21 12:41 Pulse 106 H 09/24/21 12:41 Resp 16 09/24/21 12:41 BP 154/71 H 09/24/21 12:41 Pulse Ox 100 09/24/21 12:41 Pertinent Lab Results Pertinent Lab Results: Laboratory Tests 09/23/21 09/23/21 09/23/21 12:15 12:15 13:20 WBC 15.0 H RBC 4.02 L Hgb 9.6 L Hct 31.3 L MCV 77.9 L MCH 23.9 L MCHC 30.7 L RDW 17.6 H Plt Count 374 MPV 11.3 Immature Gran % (Auto) 0.3 Neut % (Auto) 90.2 H Lymph % (Auto) 4.9 L [place] % (Auto) 4.1 Eos % (Auto) 0.3 Baso % (Auto) 0.2 Lymph # (Auto) 0.7 L [place] # (Auto) 0.6 Eos # (Auto) 0.0 Baso # (Auto) 0.0 Abs Immat Gran (auto) 0.05 H Absolute Neuts (auto) 13.5 H Absolute Nucleated RBC 0.000 Nucleated RBC % (auto) 0.0 Smear Tech's Comments VERIFIED Sodium Potassium Chloride Carbon Dioxide Anion Gap BUN Creatinine Estim Creat Clear Calc Estimated GFR Random Glucose Lactic Acid Calcium Iron TIBC % Saturation Unsat Iron Binding Total Bilirubin Direct Bilirubin AST ALT Alkaline Phosphatase Total Protein Albumin Lipase Urine Color DK YELLOW Urine Appearance CLOUDY Urine pH 6.0 Ur Specific [place] 1.015 Urine Protein TRACE Urine Glucose (UA) NEG Urine Ketones NEG Urine Blood 3+ H Urine Nitrite POS H Ur Leukocyte Esterase 2+ H Urine RBC TNTC H Urine WBC 15-29 H Ur Squamous Epith Cells 1+ Urine Bacteria TRACE Urine Mucus 2+ Urine Test NEGATIVE COVID-19 ([facility]) COVID-19 Clin Com 09/23/21 09/23/21 09/23/21 13:20 13:23 18:21 WBC RBC Hgb Hct MCV MCH MCHC RDW Plt Count MPV Immature Gran % (Auto) Neut % (Auto) Lymph % (Auto) [place] % (Auto) Eos % (Auto) Baso % (Auto) Lymph # (Auto) [place] # (Auto) Eos # (Auto) Baso # (Auto) Abs Immat Gran (auto) Absolute Neuts (auto) Absolute Nucleated RBC Nucleated RBC % (auto) Smear Tech's Comments Sodium 138 Potassium 4.2 Chloride 106 Carbon Dioxide 22 Anion Gap 14 BUN 13 Creatinine 0.81 Estim Creat Clear Calc 98.9 Estimated GFR > 60 Random Glucose 95 Lactic Acid 0.9 Calcium 9.5 Iron 15 L TIBC 420 % Saturation 4 L Unsat Iron Binding 405 Total Bilirubin < 0.2 Direct Bilirubin < 0.2 AST 17 ALT 11 Alkaline Phosphatase 94 Total Protein 7.5 Albumin 4.4 Lipase 10 Urine Color Urine Appearance Urine pH Ur Specific [place] Urine Protein Urine Glucose (UA) Urine Ketones Urine Blood Urine Nitrite Ur Leukocyte Esterase Urine RBC Urine WBC Ur Squamous Epith Cells Urine Bacteria Urine Mucus Urine Test COVID-19 ([facility]) Negative COVID-19 Clin Com See Note 09/24/21 09/24/21 05:12 05:12 WBC 13.4 H RBC 3.65 L Hgb 8.8 L Hct 28.1 L MCV 77.0 L MCH 24.1 L MCHC 31.3 RDW 17.3 H Plt Count 325 MPV 11.3 Immature Gran % (Auto) Neut % (Auto) Lymph % (Auto) [place] % (Auto) Eos % (Auto) Baso % (Auto) Lymph # (Auto) [place] # (Auto) Eos # (Auto) Baso # (Auto) Abs Immat Gran (auto) Absolute Neuts (auto) Absolute Nucleated RBC 0.000 Nucleated RBC % (auto) 0.0 Smear Tech's Comments Sodium 136 Potassium 3.8 Chloride 106 Carbon Dioxide 21 L Anion Gap 13 BUN 11 Creatinine 0.89 Estim Creat Clear Calc 89.9 Estimated GFR > 60 Random Glucose 141 H Lactic Acid Calcium 8.8 D Iron TIBC % Saturation Unsat Iron Binding Total Bilirubin Direct Bilirubin AST ALT Alkaline Phosphatase Total Protein Albumin Lipase Urine Color Urine Appearance Urine pH Ur Specific [place] Urine Protein Urine Glucose (UA) Urine Ketones Urine Blood Urine Nitrite Ur Leukocyte Esterase Urine RBC Urine WBC Ur Squamous Epith Cells Urine Bacteria Urine Mucus Urine Test COVID-19 ([facility]) COVID-19 Clin Com Airway Mallampati Class: II TM Dist: >3cm Neck ROM: Full Loose/Missing/Broken Teeth: No Heart: RRR Lungs: CTA Assessment and Plan Assessment Anesthesia Assessment: Anesthesia Plan Discussed and Chart Reviewed Final Anesthetic Review History of Problems with Anesthesia: No NPO: Yes ASA Class: II Final Preanesthetic Review: Meds/Allgs Chart Reviewed, Consent Obtained/Reviewed and Anes Risks/Benef Reviewed Patient Risk: Low Procedure Risk: Low Anesthetic Plan Anesthetic Plan: GA Disposition: Standard PACU
--- NOTE | 2021-09-24 14:05 | W.PM.OPN ---
Operative Note Operative Note Date of Service: 09/24/21 Narrative: PreOperative Diagnosis: chronic bladder irritation, left proximal ureter stone, left lower pole stones, Post Operative Diagnosis: see above Procedure: - cystoscopy, left retrograde - left dilatation of ureteric orifice under fluoroscopy - left ureteroscopy, laser lithotripsy, stone basketing - left stent placement Surgeon: Dr Johnie Reynolds Anesthesia: General Indications for procedure: 40-year-old female. Presents with fever, elevated white count, left flank pain. Imaging with left proximal ureter stone and multiple stones in left lower pole. Recommended intervention with stent placement and ureteroscopy Procedure: After informed consent was verified patient was brought to the operating placed in supine position. Anesthesia was administered per protocol. Patient was placed in modified dorsal lithotomy position and prepped and draped in a sterile fashion. Safety pause time-out and side of surgery confirmed. Antibiotics confirmed. 22 [place] cystoscope was inserted per urethra. Bladder was normal in its entirety. Both ureteric orifices were in normal position. The bladder was found to have chronic cystitis and the left ureter was inflamed. The ureteric orifice was cannulated and a retrograde examination was performed. filling defects seen in proximal ureter and lower pole . A Sensor guidewire was placed up to the level of the renal pelvis under fluoroscopy. The rigid cystoscope was removed and the inner cannula of ureteric access sheath was used under fluoroscopy to dilate the ureteric orifice. The ureteric access sheath was placed and the inner cannula with access wire removed. The digital flexible ureteral scope was placed. the left renal pelvis had debris. This was irrigated and aspirated clear. Stones were found in the mid pole and a larger stone was found in the lower pole. There were multiple stones in lower pole. Using a 270 micron laser the stones were all broken into small pieces. Basketing was performed and stone was taken for analysis. The lining to the renal pelvis was quite inflamed consistent with a chronic irritation and chronic inflammation. This meant that there was venous ooze which made visibility difficult. Decision was made not to try and clear out stone with a basket but instead for stent placement and management with antibiotics. A 6 [place] by Twenty-six cm double-J stent was placed into the renal pelvis and bladder under a combination of fluoroscopy and direct visualization. The bladder was emptied. The patient tolerated the procedure well and was extubated in the operating room, and transferred in stable condition to the recovery area. Pathology: stones Drains: 6 [place] by 26 cm double-J stent
--- NOTE | 2021-09-24 15:19 | PM.ANESPN ---
Subjective Subjective Date of Service: 09/25/21 Interval history: CTSP in Pacu immediately after Urologic procedure. Pt anxious, dysphoric. HR in 160's. Bp taken manually 120/80. o2 Sat mid 90 s on 100% non rebreather but decreased to low 80's on 3L nasal cannula. Temp forehead initially 101.2; retaken 103.1. Pt given Versed total 2 mg for agitation, IV tylenol given and blood drawn for lactate and CBC. Blood cultures were drawn previously. Research Executive notified and came to bedside for evaluation, Dr. Reynolds notified, assuming septic shower after urologic procedure. Physical Exam Vital Signs: Vital Signs: Last Vital Signs Temp 98.9 F 09/24/21 14:15 Pulse 114 H 09/24/21 14:20 Resp 20 09/24/21 14:20 BP 109/55 L 09/24/21 14:20 Pulse Ox 99 09/24/21 14:20 BMI result Body Mass Index 30.8 Progress Note: A&P Fall Risk Details Current Medications: Current Medications Acetaminophen (Acetaminophen Oral Liquid 650 Mg/20.3 Ml Solution) 650 mg PO Q6H PRN PRN Reason: Pain, Severe (Pain Scale 7-10) Last Admin: 09/24/21 03:31 Dose: 650 mg Documented by: Acetaminophen (Acetaminophen 325 Mg Tablet) 650 mg PO ONCE PRN PRN Reason: Pain, Mild (Pain Scale 1-3) Albuterol Sulfate (Albuterol Sulfate (0.083%) 2.5 Mg/3 Ml Vial.Yelitza) 2.5 mg INHALE ONCE PRN PRN Reason: Wheezing Fentanyl (Fentanyl Citrate/Pf 100 Mcg/2 Ml Vial) 25 mcg IVPUSH Q5M PRN; Protocol PRN Reason: Pain, Moderate (Pain Scale 4-6 Ferrous Sulfate (Ferrous Sulfate 324 Mg Tablet.) 324 mg PO BIDWM ALEXY Ketorolac Tromethamine (Ketorolac Tromethamine 30 Mg/Ml Vial) 15 mg IVPUSH Q6H PRN PRN Reason: Pain, Moderate (Pain Scale 4-6 Stop: 09/28/21 17:06 Last Admin: 09/24/21 09:23 Dose: 15 mg Documented by: Ondansetron HCl (Ondansetron Hcl 4 Mg/2 Ml Vial) 4 mg IVPUSH Q8H PRN PRN Reason: Nausea and Vomiting Ondansetron HCl (Ondansetron Hcl 4 Mg/2 Ml Vial) 4 mg IVPUSH ONCE PRN PRN Reason: Nausea and Vomiting Oxycodone HCl (Oxycodone Hcl Immed Release 5 Mg Tablet) 5 mg PO ONCE PRN PRN Reason: Pain, Severe (Pain Scale 7-10) Pharmacy Consult (Consult Rx Perform Med Rec) 1 each MISCELLANE ONCE PRN PRN Reason: Consult order Sodium Chloride (0.9 % Sodium Chloride Flush 3 Ml Syringe) [facility] Last Admin: 09/24/21 09:21 Dose: 3 ml Documented by: Tramadol HCl (Tramadol Hcl 50 Mg Tablet) 50 mg PO Q6H PRN PRN Reason: Pain, Moderate (Pain Scale 4-6 Time Spent With Patient Time: Total time spent is greater than 50% in coordination of care (as documented) at patient's floor/unit and/or counseling patient: Progress Note: Quality Stroke Does the patient have a stroke diagnosis?: No Procedures Date of Service Date of Service: 09/24/21
[2021-09-24] MEDS: fentaNYL citrate/PF 100 MCG/2 ML VIAL 25 MCG IVPUSH (15:20)
[2021-09-24 15:32] LABS: Hematocrit 27.1 % (37.0-47.0); Hemoglobin 8.3 g/dl (12.0-16.0); Mean Corpuscular HGB Conc 30.6 g/dl (31.0-35.0); Mean Corpuscular Hemoglobin 23.6 pg (27.0-33.0); Mean Corpuscular Volume 77.2 fL (80.0-98.0); Mean Platelet Volume 10.9 fL (9.4-12.3); Platelet Count 230 X10*3/uL (160-400); Red Blood Count 3.51 X10*6/uL (4.20-5.50); Red Cell Distribution Width 17.4 % (11.0-16.0); White Blood Count 4.5 X10*3/uL (4.8-10.8)
--- NOTE | 2021-09-24 15:41 | P.CONCC_ITS ---
History of Present Illness Data of Consult Service Date: 09/24/21 Requesting physician: Lupillo Velasquez Primary Care Provider: Unknown Physician HPI Reason for consult: Sepsis post cystoscopy Called to PACU to see this generally healthy 40 yo woman in PACU because of sepsis following cystoscopy. Presented to the ED yesterday with left renal colic.? CT scan shows collection of stones in left side with left UPJ stone.? Initially diagnosed with stones in 2016.? WBC in the ED was 15.? Lactic acid was 0.9. ?She was given Levaquin 500mg in the ED, admitted to Medicine, and scheduled for cysto with laser/litho today. In the preop area this afternoon, the patient was jovial, and perfectly comfortable and healthy appearing. ?RR was 16, SpO2 on room air was 100%.? She was given Levaquin 500 mg IV preoperatively.? She was taken to the operating room and under general anesthesia with an LMA, she underwent cystoscopy with left retrograde, dilatation of the left ureteric orifice, left ureteroscopy and laser lithotripsy with stone basketing, and then stent placement.? Notably, at cystoscopy, the bladder was noted to have chronic cystitis and the left ureter was inflamed.? The lining of the left renal pelvis was quite inflamed consistent with a chronic irritation and chronic inflammation.? At the end of surgery, the LMA was removed and the patient was taken to the PACU where she became tachypneic to a respiratory rate in the 30s, and hyperthermic to temperature 103.1 degrees.? She was given Ativan and IV fluids and I was called to see her. On my exam, the patient was a little bit altered.? She was tachypneic without significant increased work of breathing.? Respiratory rate was about 30, end- tidal CO2 was about 32, and sat was 98% on a non-rebreather face mask.? I took her off the non-rebreather face mask and put her on 4 L nasal cannula, with sat of 90-92%.? Heart rate was 130, sinus rhythm.? Blood pressure was 140s systolic. ?There is no jugular venous distention with the head of the bed at about 20 degrees.? Chest was clear to auscultation with a normal expiratory phase.? The abdomen was nondistended, but she had some mild lower mid-abdominal tenderness.? No guarding or rebound. LABORATORY DATA:? Labs from this morning showed a white count of 13 with a hemoglobin of 8.8 BUN/creatinine this morning were 11/0.8 with a bicarb of 21.? Labs drawn now in the PACU show white count of 4.5, hemoglobin 8.3, and lactic acid 1.8. MICROBIOLOGY:? Blood cultures were drawn yesterday in the ED and are negative so far.? (Blood cultures were therefore not redrawn in the PACU.) ?Urinalysis in the ED showed 15-29 white cells with trace urine bacteria.? CXR shows gross pulmon edema Last SpO2 was low 90's on 3L. IMPRESSION: 1. Nephrolithiasis 2. Postop sepsis following cystoscopy and laser litho.? A common occurrence.? We?ve given her an extra liter of LR in the PACU, along with some fentanyl, and she looks much better.? D/W Dr. Reynolds and pharmacy, I?ll change her abx to ceftriaxone. 3. Anemia of unclear etiol.? She?s having her menses now. 4. The CXR shows pulmon edema.? In the current setting (i.e. postoperatively after general anesthesia), this would typically be negative pressure pulmonary edema.? The anesthesiologists, however, insist that there was nothing untoward from a respiratory standpoint at the end of the surgery.? Therefore, the possibility exists that this is ARDS.? But that would be distinctly uncommon after a urological procedure inducing sepsis; furthermore it is too early; and lastly, the patient is relatively asymptomatic which would be highly unusual for this degree of chest x-ray involvement, if it was ARDS.? Either way, I will stop her IVF and we?ll just monitor her u/o and renal indices. The patient is stable to go to [facility] [place] Past Medical History Medical History Kidney stone Social History Social History Household Members: Family Housing: House Do you presently have visiting nurse or other home services: No Patient Tobacco Use Status: Never used Tobacco Advance Directives Date on File: 09/24/21 service: No Current occupational status: employed Meds Allergies Allergy/AdvReac Type Severity Reaction Status Date / Time Iodinated Contrast Media Allergy Unknown Unknown Verified 09/23/21 13:10 Latex, Natural Rubber Allergy Unknown Verified 09/24/21 03:48 shell fish Allergy Unknown Uncoded 09/24/21 03:48 Active Medications: Current Medications Acetaminophen (Acetaminophen Oral Liquid 650 Mg/20.3 Ml Solution) 650 mg PO Q6H PRN PRN Reason: Pain, Severe (Pain Scale 7-10) Last Admin: 09/24/21 03:31 Dose: 650 mg Documented by: Acetaminophen (Acetaminophen 325 Mg Tablet) 650 mg PO ONCE PRN PRN Reason: Pain, Mild (Pain Scale 1-3) Albuterol Sulfate (Albuterol Sulfate (0.083%) 2.5 Mg/3 Ml Vial.Neb) 2.5 mg INHALE ONCE PRN PRN Reason: Wheezing Fentanyl (Fentanyl Citrate/Pf 100 Mcg/2 Ml Vial) 25 mcg IVPUSH Q5M PRN; Protocol PRN Reason: Pain, Moderate (Pain Scale 4-6 Last Admin: 09/24/21 15:20 Dose: 25 mcg Documented by: Ferrous Sulfate (Ferrous Sulfate 324 Mg Tablet.) 324 mg PO BIDWM [facility] Ketorolac Tromethamine (Ketorolac Tromethamine 30 Mg/Ml Vial) 15 mg IVPUSH Q6H PRN PRN Reason: Pain, Moderate (Pain Scale 4-6 Stop: 09/28/21 17:06 Last Admin: 09/24/21 09:23 Dose: 15 mg Documented by: Ondansetron HCl (Ondansetron Hcl 4 Mg/2 Ml Vial) 4 mg IVPUSH Q8H PRN PRN Reason: Nausea and Vomiting Ondansetron HCl (Ondansetron Hcl 4 Mg/2 Ml Vial) 4 mg IVPUSH ONCE PRN PRN Reason: Nausea and Vomiting Oxycodone HCl (Oxycodone Hcl Immed Release 5 Mg Tablet) 5 mg PO ONCE PRN PRN Reason: Pain, Severe (Pain Scale 7-10) Pharmacy Consult (Consult Rx Perform Med Rec) 1 each MISCELLANE ONCE PRN PRN Reason: Consult order Sodium Chloride (0.9 % Sodium Chloride Flush 3 Ml Syringe) 3 ml IVFLUSH [facility] Last Admin: 09/24/21 09:21 Dose: 3 ml Documented by: Tramadol HCl (Tramadol Hcl 50 Mg Tablet) 50 mg PO Q6H PRN PRN Reason: Pain, Moderate (Pain Scale 4-6 Home Medications Medication Instructions Recorded Confirmed Last Taken Type No Known Home Meds 09/23/21 09/23/21 Unknown History Physical Exam Vital Signs: Vital Signs: Last Vital Signs Temp 98.9 F 09/24/21 14:15 Pulse 115 H 09/24/21 14:25 Resp 30 H 09/24/21 15:20 BP 122/78 09/24/21 14:25 Pulse Ox 99 09/24/21 14:25 BMI result Body Mass Index 30.8 Results Labs CBC & Chem 7: 09/24/21 15:24 09/24/21 05:12 Labs: Short CBC 09/24/21 09/24/21 Range/Units 05:12 15:24 WBC 13.4 H 4.5 L (4.8-10.8) X10*3/uL Hgb 8.8 L 8.3 L (12.0-16.0) g/dl Hct 28.1 L 27.1 L (37.0-47.0) % Plt Count 325 230 D (160-400) X10*3/uL BMP 09/24/21 05:12 Sodium 136 Potassium 3.8 Chloride 106 Carbon Dioxide 21 L BUN 11 Creatinine 0.89 Calcium 8.8 D Microbiology Microbiology Results: Microbiology 09/23/21 13:20 Blood - Venous Blood Culture - Preliminary No growth after 24 hours. 09/23/21 13:20 Blood - Venous Blood Culture - Preliminary No growth after 24 hours. 09/23/21 00:00 Urine clean catch - Urine mack top Urine Culture - Preliminary
[2021-09-24 15:47] LABS: Lactic Acid 1.8 mmol/L (0.5-2.0)
[2021-09-24] MEDS: Lactated Ringers 1,000 ML 80 ML IVCONT (16:26)
[2021-09-24] MEDS: cefTRIAXone sodium 1 GM in 0.9 % Sodium Chloride 50 ML IV (16:41)
[2021-09-24] MEDS: ondansetron HCL 4 MG/2 ML VIAL IVPUSH (18:48)
--- NOTE | 2021-09-24 19:02 | P.EN_ITS ---
Event Note Date of Service: 09/24/21 Event Note: ICU call that patient will be going to floor, was seen and examined in PACU. Appearance: Alert.? Oriented X3.? not in distress.? sats 93% on 3 liters Eyes: Pupils equal, round and reactive to light.? Sclera nonicteric.? cvs: rrr, [id number] jvd res: air entry seems slightly diminshed at bases , otherwise seems no wheezing abd: no rebound or guarding ,nt, bs present. ext pulses present , no cyanosis . neuro: axo3 , nonfocal. Assessment and plan: Discussed with ICU: Unchanged from ICU note. Patient started on IV ceftriaxone by ICU. Chest x-ray finding-thought to be possible?negative pressure pulmonary edema- decided to stop fluids for now. Monitor patient clinically, if shortness of breath worsened repeat chest imaging Will sign off to the primary provider in the morning.
[2021-09-24] MEDS: traMADoL HCL 50 MG TABLET PO (19:33)
[2021-09-25] VITALS (8 sets, daily range): BP systolic 113–131; BP diastolic 55–64; PULSE 70–110; RESP 17–18; TEMP 36–39; O2SAT 88–98
[2021-09-25] MEDS: Ketorolac Tromethamine 30 MG/ML VIAL 15 MG IVPUSH ×3 (01:41→13:48)
[2021-09-25] MEDS: 0.9 % Sodium Chloride Flush 3 ML SYRINGE IVFLUSH ×4 (01:44→19:30)
[2021-09-25] MEDS: traMADoL HCL 50 MG TABLET PO ×2 (05:48→16:03)
[2021-09-25 06:08] LABS: Hematocrit 27.5 % (37.0-47.0); Hemoglobin 8.4 g/dl (12.0-16.0); Mean Corpuscular HGB Conc 30.5 g/dl (31.0-35.0); Mean Corpuscular Hemoglobin 23.9 pg (27.0-33.0); Mean Corpuscular Volume 78.3 fL (80.0-98.0); Mean Platelet Volume 11.6 fL (9.4-12.3); Platelet Count 264 X10*3/uL (160-400); Red Blood Count 3.51 X10*6/uL (4.20-5.50); Red Cell Distribution Width 17.9 % (11.0-16.0); White Blood Count 21.7 X10*3/uL (4.8-10.8)
[2021-09-25 06:36] LABS: Band Neutrophils Percent 18 % (3-5); Monocytes Absolute Manual 0.4 X10*3/uL (0.1-1.2); Monocytes Percent Manual 2 % (2-11); Neutrophils Absolute Manual 21.3 X10*3/uL (2.0-8.3); Neutrophils Percent Manual 80 % (45-73)
[2021-09-25 06:37] LABS: Microcytosis 1+ (5-14) /OIF; Platelet Estimate NORMAL (NORMAL); Platelet Morphology Comment NORMAL; RBC Morphology NOTED; Toxic Vacuolation PRESENT
[2021-09-25 06:41] LABS: Anion Gap 11 (12-20); Blood Urea Nitrogen 18 mg/dL (9-16); Calcium 8.2 mg/dL (8.4-10.2); Carbon Dioxide 22 mmol/L (22-29); Chloride 111 mmol/L (96-108); Creatinine Clr Calc Pharmacy 61.1; Estimated Glomerular Filt Rate 45; Glucose Random 129 mg/dL (60-115); Potassium 4.5 mmol/L (3.3-5.1); Sodium 139 mmol/L (135-145)
--- NOTE | 2021-09-25 07:37 | P.PNCC_ITS ---
Subjective Subjective Date of Service: 09/25/21 Interval History: This is a remote note on this 40 yo F with sepsis after cysto with laser/litho yesterday. See my consult note from yesterday. CXR in PACU yesterday showed pulmonary edema. Therefore IVF were discontinued. This morning, the patient's BUN/creat are up to 18/1.3. Overnite her oxygenation has improved. Pulmonary edema is undoubtedly resolving. Therefore I have taken the liberty of restarting her on LR @ 80 cc/hr. Critical Care Time (minutes): 0 Physical Exam Vital Signs: Vital Signs: Last Vital Signs Temp 97 F 09/25/21 03:15 Pulse 70 09/25/21 03:15 Resp 18 09/25/21 03:15 BP 115/64 09/25/21 03:15 Pulse Ox 96 09/25/21 03:15 BMI result Body Mass Index 30.8 Objective Data Labs CBC & Chem 7: 09/25/21 05:34 09/25/21 05:34 Labs: Laboratory Results - last 24 hr 09/24/21 09/24/21 09/25/21 15:24 15:24 05:34 WBC 4.5 L RBC 3.51 L Hgb 8.3 L Hct 27.1 L MCV 77.2 L MCH 23.6 L MCHC 30.6 L RDW 17.4 H Plt Count 230 D MPV 10.9 Immature Gran % (Auto) Neut % (Auto) Lymph % (Auto) [place] % (Auto) Eos % (Auto) Baso % (Auto) Lymph # (Auto) [place] # (Auto) Eos # (Auto) Baso # (Auto) Abs Immat Gran (auto) Absolute Neuts (auto) Absolute Nucleated RBC 0.000 Nucleated RBC % (auto) 0.0 Neutrophils % (Manual) Band Neutrophils % Monocytes % (Manual) Abs Neuts (Manual) Monocytes # (Manual) Toxic Vacuolation Platelet Estimate Plt Morphology Comment RBC Morphology Microcytosis Sodium 139 Potassium 4.5 Chloride 111 H Carbon Dioxide 22 Anion Gap 11 L BUN 18 H D Creatinine 1.31 Estim Creat Clear Calc 61.1 Estimated GFR 45 Random Glucose 129 H Lactic Acid 1.8 Calcium 8.2 L D 09/25/21 05:34 WBC 21.7 H RBC 3.51 L Hgb 8.4 L Hct 27.5 L MCV 78.3 L MCH 23.9 L MCHC 30.5 L RDW 17.9 H Plt Count 264 MPV 11.6 Immature Gran % (Auto) Cancelled Neut % (Auto) Cancelled Lymph % (Auto) Cancelled [place] % (Auto) Cancelled Eos % (Auto) Cancelled Baso % (Auto) Cancelled Lymph # (Auto) Cancelled [place] # (Auto) Cancelled Eos # (Auto) Cancelled Baso # (Auto) Cancelled Abs Immat Gran (auto) Cancelled Absolute Neuts (auto) Cancelled Absolute Nucleated RBC 0.000 Nucleated RBC % (auto) 0.0 Neutrophils % (Manual) 80 H Band Neutrophils % 18 H Monocytes % (Manual) 2 Abs Neuts (Manual) 21.3 H Monocytes # (Manual) 0.4 Toxic Vacuolation PRESENT Platelet Estimate NORMAL Plt Morphology Comment NORMAL RBC Morphology NOTED Microcytosis 1+ (5-14) Sodium Potassium Chloride Carbon Dioxide Anion Gap BUN Creatinine Estim Creat Clear Calc Estimated GFR Random Glucose Lactic Acid Calcium Microbiology Microbiology Results: Microbiology 09/23/21 13:20 Blood - Venous Blood Culture - Preliminary No growth after 24 hours. 09/23/21 13:20 Blood - Venous Blood Culture - Preliminary No growth after 24 hours. 09/23/21 00:00 Urine clean catch - Urine mack top Urine Culture - Preliminary Quality Stroke Does the patient have a stroke diagnosis?: No VTE Prior VTE?: No VTE Risk Level:: Medical - low VTE Device Contraindication: Treatment Not Indicated VTE Drug Contraindication: Treatment Not Indicated
[2021-09-25] MEDS: Ferrous Sulfate 324 MG TABLET.DR PO ×2 (07:58→15:50)
[2021-09-25] MEDS: Lactated Ringers 1,000 ML 80 ML IVCONT (07:58)
--- NOTE | 2021-09-25 08:11 | HO.POSTANES ---
Post Anesthesia Evaluation Post Anesthesia Evaluation Vital Signs: Vital Signs Temp Pulse Resp BP Pulse Ox 09/25/21 08:00 97.2 F 88 17 114/55 L 94 09/25/21 03:15 97 F 70 18 115/64 96 09/24/21 23:37 97 F 99 18 115/63 95 Anesthesia: General LMA Mental Status: Awake Pain Control: Satisfactory Nausea/Vomiting: None Hydration: Adequate Comments: pt doing better this AM with resolving respiratory issues.
--- NOTE | 2021-09-25 11:05 | P.PNIM_ITS ---
Subjective Subjective Date of Service: 09/25/21 Interval History: the patient was seen and evaluated this morning Laying in bed, Oxygen supplement Had an incident after the procedure yesterday with respiratory distress and evidence of pulmonary edema no more fever overnight No reported other overnight events. Review of Systems Reporting general improvement but generalized weakness No chest pain, palpitation No shortness of breath or coughing No abdominal pain, nausea or vomiting improved left-sided low in and back pain but still having pain No any rash or wounds Physical Exam Vital Signs: Vital Signs: Last Vital Signs Temp 97.2 F 09/25/21 08:00 Pulse 88 09/25/21 08:00 Resp 17 09/25/21 08:00 BP 114/55 L 09/25/21 08:00 Pulse Ox 94 09/25/21 08:00 BMI result Body Mass Index 30.8 Const: Other: Constitutional : Alert, oriented, not in distress Neck : Normal inspection, Supple Cardiovascular : RRR, no JVP, no lower extremity edema, Respiratory : fair bilateral air entry, bilateral basal fine crackles, no wheezes or rhonchi Gastrointestinal: soft, lax, Normal bowel sounds, Non tender Skin : Warm, Dry Urology: positive CVA tenderness Neurological : Alert & oriented x3, No focal deficit , CN 2-12 within normal Objective Data Active Medications Acetaminophen (Acetaminophen Oral Liquid 650 Mg/20.3 Ml Solution) 650 mg PO Q6H PRN PRN Reason: Pain, Severe (Pain Scale 7-10) Last Admin: 09/24/21 03:31 Dose: 650 mg Documented by: GRETA Acetaminophen (Acetaminophen 325 Mg Tablet) 650 mg PO ONCE PRN PRN Reason: Pain, Mild (Pain Scale 1-3) Albuterol Sulfate (Albuterol Sulfate (0.083%) 2.5 Mg/3 Ml Vial.Neb) 2.5 mg INHALE ONCE PRN PRN Reason: Wheezing Fentanyl (Fentanyl Citrate/Pf 100 Mcg/2 Ml Vial) 25 mcg IVPUSH Q5M PRN; Protocol PRN Reason: Pain, Moderate (Pain Scale 4-6 Last Admin: 09/24/21 15:20 Dose: 25 mcg Documented by: LEON Ferrous Sulfate (Ferrous Sulfate 324 Mg Tablet.) 324 mg PO BIDWM ALEXY Last Admin: 09/25/21 07:58 Dose: 324 mg Documented by: YAW Ceftriaxone Sodium 1 gm/ (Sodium Chloride) 50 mls @ 100 mls/hr IV Q24H [facility] Last Infusion: 09/24/21 18:34 Dose: 0 mls/hr Documented by: ALLI Ketorolac Tromethamine (Ketorolac Tromethamine 30 Mg/Ml Vial) 15 mg IVPUSH Q6H PRN PRN Reason: Pain, Moderate (Pain Scale 4-6 Stop: 09/28/21 17:06 Last Admin: 09/25/21 08:15 Dose: 15 mg Documented by: YAW Ondansetron HCl (Ondansetron Hcl 4 Mg/2 Ml Vial) 4 mg IVPUSH Q8H PRN PRN Reason: Nausea and Vomiting Last Admin: 09/24/21 18:48 Dose: 4 mg Documented by: ALLI Ondansetron HCl (Ondansetron Hcl 4 Mg/2 Ml Vial) 4 mg IVPUSH ONCE PRN PRN Reason: Nausea and Vomiting Oxycodone HCl (Oxycodone Hcl Immed Release 5 Mg Tablet) 5 mg PO ONCE PRN PRN Reason: Pain, Severe (Pain Scale 7-10) Pharmacy Consult (Consult Rx Perform Med Rec) 1 each MISCELLANE ONCE PRN PRN Reason: Consult order Sodium Chloride (0.9 % Sodium Chloride Flush 3 Ml Syringe) [address] [facility] Last Admin: 09/25/21 07:58 Dose: 3 ml Documented by: YAW Tramadol HCl (Tramadol Hcl 50 Mg Tablet) 50 mg PO Q6H PRN PRN Reason: Pain, Moderate (Pain Scale 4-6 Last Admin: 09/25/21 05:48 Dose: 50 mg Documented by: DANIEL Labs CBC & Chem 7: 09/25/21 05:34 09/25/21 05:34 Labs: Laboratory Results - last 24 hr 09/24/21 09/24/21 09/25/21 15:24 15:24 05:34 MCV 77.2 L MCH 23.6 L MCHC 30.6 L RDW 17.4 H Plt Count 230 D MPV 10.9 Immature Gran % (Auto) Neut % (Auto) Lymph % (Auto) [place] % (Auto) Eos % (Auto) Baso % (Auto) Lymph # (Auto) [place] # (Auto) Eos # (Auto) Baso # (Auto) Abs Immat Gran (auto) Absolute Neuts (auto) Absolute Nucleated RBC 0.000 Nucleated RBC % (auto) 0.0 Neutrophils % (Manual) Band Neutrophils % Monocytes % (Manual) Abs Neuts (Manual) Monocytes # (Manual) Toxic Vacuolation Platelet Estimate Plt Morphology Comment RBC Morphology Microcytosis Anion Gap 11 L Estim Creat Clear Calc 61.1 Estimated GFR 45 Random Glucose 129 H Lactic Acid 1.8 Calcium 8.2 L D 09/25/21 05:34 MCV 78.3 L MCH 23.9 L MCHC 30.5 L RDW 17.9 H Plt Count 264 MPV 11.6 Immature Gran % (Auto) Cancelled Neut % (Auto) Cancelled Lymph % (Auto) Cancelled [place] % (Auto) Cancelled Eos % (Auto) Cancelled Baso % (Auto) Cancelled Lymph # (Auto) Cancelled [place] # (Auto) Cancelled Eos # (Auto) Cancelled Baso # (Auto) Cancelled Abs Immat Gran (auto) Cancelled Absolute Neuts (auto) Cancelled Absolute Nucleated RBC 0.000 Nucleated RBC % (auto) 0.0 Neutrophils % (Manual) 80 H Band Neutrophils % 18 H Monocytes % (Manual) 2 Abs Neuts (Manual) 21.3 H Monocytes # (Manual) 0.4 Toxic Vacuolation PRESENT Platelet Estimate NORMAL Plt Morphology Comment NORMAL RBC Morphology NOTED Microcytosis 1+ (5-14) Anion Gap Estim Creat Clear Calc Estimated GFR Random Glucose Lactic Acid Calcium Microbiology Microbiology Results: Microbiology 09/23/21 00:00 Urine Culture - Final Urine clean catch - Urine mack top 09/23/21 13:20 Blood Culture - Preliminary Blood - Venous No growth after 24 hours. 09/23/21 13:20 Blood Culture - Preliminary Blood - Venous No growth after 24 hours. Assessment and Plan (1) Hydronephrosis of left kidney: Status: Acute (2) Sepsis: Status: Acute (3) Pyelonephritis: Status: Acute (4) Acute respiratory failure with hypoxia: Status: Acute (5) Pulmonary edema: Status: Acute Plan a 40 years old healthy lady who presents to the hospital with left-sided flank pain for the last 3 days. Sepsis, resolved secondary to pyelonephritis negative cultures Continue IV antibiotics of ceftriaxone hydronephrosis with ureteric stone CT scan reporting staghorn stone and a smaller rounded stone Urology date cystoscopy with laser lithotripsy and left ureter stent placement Acute hypoxic respiratory failure 2/2 pulmonary edema hold IV fluids Titrate oxygen down as tolerated Hold on Lasix for CATARINO Acute kidney injury Creatinine increased to 1.3 from baseline of 0.8 Likely related to procedure complications Hold fluids for now encourage oral intake Repeat BMP Monitor intake and output iron deficiency anemia Hemoglobin of 9.6 with low MCV low iron stores Start p.o. ferrous sulfate DVT PPX Early ambulation Quality Stroke Does the patient have a stroke diagnosis?: No VTE Prior VTE?: No VTE Risk Level:: Medical - low VTE Device Contraindication: Treatment Not Indicated VTE Drug Contraindication: Treatment Not Indicated
[2021-09-25 14:38] LABS: Anion Gap 12 (12-20); Blood Urea Nitrogen 21 mg/dL (9-16); Calcium 8.2 mg/dL (8.4-10.2); Carbon Dioxide 22 mmol/L (22-29); Chloride 112 mmol/L (96-108); Creatinine Clr Calc Pharmacy 62.6; Estimated Glomerular Filt Rate 46; Glucose Random 120 mg/dL (60-115); Potassium 3.9 mmol/L (3.3-5.1); Sodium 142 mmol/L (135-145)
[2021-09-25] MEDS: cefTRIAXone sodium 1 GM in 0.9 % Sodium Chloride 50 ML IV (15:50)
[2021-09-25] MEDS: Furosemide 20 MG/2 ML VIAL IVPUSH (15:50)
--- NOTE | 2021-09-25 16:37 | MHC.CM.PN ---
NURSE COMMUNITY RELATIONS SPECIALIST NOTE COMPLETED NEW HEALTH CARE PROXY WITH PATIENT IN WHICH SHE NAMED HER NANETTE HER AGENT ORIGINAL AND COPIES GIVEN TO HER AND COPY PLACED IN HARD CHART , DISCHAGRE PLAN HOME WITH ANTONIO BRONSON ANTICIPATE D/C TOMORROW TRABNSPORTATION FAMILY
[2021-09-25] MEDS: Phenazopyridine HCL 100 MG TABLET PO (18:24)
[2021-09-25] MEDS: Tamsulosin HCL 0.4 MG CAPSULE PO (19:29)
[2021-09-25] MEDS: Acetaminophen 325 MG TABLET 650 MG PO (19:29)
[2021-09-25 20:48] LABS: Lactic Acid 1.2 mmol/L (0.5-2.0)
[2021-09-25] MEDS: Piperacillin Sodium/Tazobactam 3.375 GM in 0.9 % Sodium Chloride 50 ML IV (20:48)
[2021-09-26] VITALS (8 sets, daily range): BP systolic 117–124; BP diastolic 58–65; PULSE 72–107; RESP 16–22; TEMP 36.1–37.4; O2SAT 95–98
[2021-09-26 01:45] LABS: Appearance Urine TURBID; Color Urine ORANGE; Glucose Urine UA NEG (NEG); Leukocyte Esterase Urine TRACE (NEG); Nitrite Urine POS (NEG); Specific Gravity - Urine 1.015 (1.005-1.025); Urine Blood 3+ (NEG); Urine Ketones NEG (NEG); Urine Protein 2+ MG/DL (NEG-TRACE)
[2021-09-26 02:01] LABS: Bacteria Urine TRACE /LPF; Mucus Urine TRACE /LPF; RBC Urine TNTC /HPF (0); Squamous Epithelial Cell Urine TRACE /LPF
[2021-09-26] MEDS: Piperacillin Sodium/Tazobactam 3.375 GM in 0.9 % Sodium Chloride 50 ML IV ×4 (03:02→20:27)
--- NOTE | 2021-09-26 03:17 | PC.NURSE ---
Addendum entered by Rowena Aguiar RN 09/26/21 04:37: Around 0300, pt c/o some SOB and congestion, LS has scattered fine crackles, vitals WNL except for HR at 107, Dr. Narayanan was notified, Lasix 40 mg IV ordered, labs drawn, CXR done. Original Note: Pt noted with fever at 102.2 orally around 1900, Cd=349/60 H=110, prn Tylenol given Dr. Narayanan was notified, blood cultures ordered, UA reflex ordered amd sample sent, started pt on Zosyn IV, temp rechecked and was 98.2.
--- NOTE | 2021-09-26 03:32 | PM.EVENT ---
Event Note Date of Service: 09/26/21 Event Note: Patient developed fever was tachycardia, complaining of shortness of breath. On review of her chart, it seems that patient has been on ceftriaxone, patient's antibiotics have been changed to Zosyn, blood cultures obtained, given the continue symptomatic shortness of breath, and crackles on exam, will give 40 of Lasix for the shortness of breath, will obtain BNP, chest x-ray.
[2021-09-26] MEDS: Furosemide 40 MG/4 ML VIAL IVPUSH (03:43)
[2021-09-26 04:21] LABS: Anion Gap 10 (12-20); Blood Urea Nitrogen 17 mg/dL (9-16); Carbon Dioxide 24 mmol/L (22-29); Chloride 108 mmol/L (96-108); Creatinine Clr Calc Pharmacy 88.9; Estimated Glomerular Filt Rate > 60; Glucose Random 117 mg/dL (60-115); Potassium 3.4 mmol/L (3.3-5.1); Sodium 139 mmol/L (135-145)
[2021-09-26 04:28] LABS: B Type Natriuretic Peptide 94 pg/mL (<100)
[2021-09-26 06:20] LABS: Hematocrit 25.5 % (37.0-47.0); Mean Corpuscular HGB Conc 31.4 g/dl (31.0-35.0); Mean Corpuscular Hemoglobin 24.1 pg (27.0-33.0); Mean Corpuscular Volume 76.8 fL (80.0-98.0); Mean Platelet Volume 12.2 fL (9.4-12.3); Platelet Count 258 X10*3/uL (160-400); Red Blood Count 3.32 X10*6/uL (4.20-5.50); Red Cell Distribution Width 17.8 % (11.0-16.0); White Blood Count 11.8 X10*3/uL (4.8-10.8)
[2021-09-26] MEDS: Phenazopyridine HCL 100 MG TABLET PO (06:31)
[2021-09-26 06:46] LABS: Anion Gap 14 (12-20); Blood Urea Nitrogen 16 mg/dL (9-16); Calcium 8.1 mg/dL (8.4-10.2); Carbon Dioxide 24 mmol/L (22-29); Chloride 103 mmol/L (96-108); Creatinine Clr Calc Pharmacy 80.8; Estimated Glomerular Filt Rate > 60; Glucose Random 128 mg/dL (60-115); Potassium 3.4 mmol/L (3.3-5.1); Sodium 138 mmol/L (135-145)
--- NOTE | 2021-09-26 07:27 | PHA.PROG ---
Admission Date/Time: September 23, 2021 17:07 Indication: RESPIRATORY INFECTION Weight in k.1 kg Adjusted body weight in K.8 Abie body weight in K Obesity Dosing Indication % IBW:47 Serum Creatinine - Last 168 Hours 09/23/21 09/24/21 09/25/21 13:20 05:12 05:34 Creatinine 0.81 0.89 1.31 09/25/21 09/26/21 09/26/21 14:15 03:52 05:38 Creatinine 1.28 0.90 0.99 Estimated CrCl and GFR - Last 168 Hours 09/23/21 09/24/21 09/25/21 13:20 05:12 05:34 Estim Creat Clear Calc 98.9 89.9 61.1 Estimated GFR > 60 > 60 45 09/25/21 09/26/21 09/26/21 14:15 03:52 05:38 Estim Creat Clear Calc 62.6 88.9 80.8 Estimated GFR 46 > 60 > 60 Vancomycin Loading Dose: 1500 Current Vancomycin Dosing Regimen:750 MG Q 12 HOURS Vancomycin Monitoring using AUC goal of 400 - 600 range with trough as surrogate marker:GOAL AUC 488 Date and Time for next Vancomycin Level to be drawn:09/27 1800 Pharmacist Comments on Vancomycin Plan: Vancomycin dosing will take advantage of [employer] as a clinical decision support tool that uses Bayesian modeling to calculate individual patient's pharmacokinetic parameters and forecast the patient's drug concentration time course with the target goal AUC 24 range of 400 - 600 mg/L/hr.
[2021-09-26] MEDS: vancomycin HCL 1,500 MG in 0.9 % Sodium Chloride 500 ML 333.33 MG IV (07:51)
[2021-09-26] MEDS: 0.9 % Sodium Chloride Flush 3 ML SYRINGE IVFLUSH ×3 (07:51→19:16)
[2021-09-26] MEDS: Ketorolac Tromethamine 30 MG/ML VIAL 15 MG IVPUSH (07:52)
[2021-09-26] MEDS: Acetaminophen Oral Liquid 650 MG/20.3 ML SOLUTION PO (07:52)
[2021-09-26] MEDS: Ferrous Sulfate 324 MG TABLET.DR PO ×2 (07:52→16:14)
[2021-09-26] MEDS: methylPREDNISolone Sod Succ 40 MG/ML VIAL IVPUSH ×2 (09:43→21:02)
[2021-09-26] MEDS: Lactulose 20 GM/30 ML SOLUTION PO (09:43)
--- NOTE | 2021-09-26 13:03 | HO.PM.IMPN ---
Subjective Subjective Date of Service: 09/26/21 Interval History: the patient was seen and evaluated this morning Laying in bed, reported difficult night with fever as she became septic O2 sat drops to 80s upon ambulation on room feels improvement this morning spiked a fever overnight No reported other overnight events. Review of Systems Reporting general improvement but generalized weakness No chest pain, palpitation requiring oxygen supplement and still having difficulty breathing No abdominal pain, nausea or vomiting improved left-sided low in and back pain but still having pain No any rash or wounds Physical Exam Vital Signs: Vital Signs: Last Vital Signs Temp 97.0 F 09/26/21 12:00 Pulse 82 09/26/21 12:00 Resp 18 09/26/21 12:00 BP 117/60 09/26/21 12:00 Pulse Ox 98 09/26/21 12:00 Oxygen Flow Rate 2 09/26/21 10:48 BMI result Body Mass Index 30.8 Const: Other: Constitutional : Alert, oriented, not in distress Neck : Normal inspection, Supple Cardiovascular : RRR, no JVP, no lower extremity edema, Respiratory : fair bilateral air entry, improved bilateral basal fine crackles, no wheezes or rhonchi Gastrointestinal: soft, lax, Normal bowel sounds, Non tender Skin : Warm, Dry Urology: positive CVA tenderness Neurological : Alert & oriented x3, No focal deficit , CN 2-12 within normal Objective Data Active Medications Acetaminophen (Acetaminophen Oral Liquid 650 Mg/20.3 Ml Solution) 650 mg PO Q6H PRN PRN Reason: Pain, Severe (Pain Scale 7-10) Last Admin: 09/26/21 07:52 Dose: 650 mg Documented by: MONROE Albuterol Sulfate (Albuterol Sulfate (0.083%) 2.5 Mg/3 Ml Vial.Neb) 2.5 mg INHALE ONCE PRN PRN Reason: Wheezing Fentanyl (Fentanyl Citrate/Pf 100 Mcg/2 Ml Vial) 25 mcg IVPUSH Q5M PRN; Protocol PRN Reason: Pain, Moderate (Pain Scale 4-6 Last Admin: 09/24/21 15:20 Dose: 25 mcg Documented by: LEON Ferrous Sulfate (Ferrous Sulfate 324 Mg Tablet.) 324 mg PO BIDWM ALEXY Last Admin: 09/26/21 07:52 Dose: 324 mg Documented by: MONROE Piperacillin Sod/Tazobactam (Sod 3.375 gm/ Sodium Chloride) 50 mls @ 100 mls/hr IV Q6H [facility] Last Infusion: 09/26/21 10:22 Dose: 0 mls/hr Documented by: COTEMA Vancomycin HCl 750 mg/ Sodium (Chloride) 265 mls @ 265 mls/hr IV Q12H [facility] Ketorolac Tromethamine (Ketorolac Tromethamine 30 Mg/Ml Vial) 15 mg IVPUSH Q6H PRN PRN Reason: Pain, Moderate (Pain Scale 4-6 Stop: 09/28/21 17:06 Last Admin: 09/26/21 07:52 Dose: 15 mg Documented by: COTEMA Lactulose (Lactulose 20 Gm/30 Ml Solution) 20 gm PO BID [facility] Last Admin: 09/26/21 09:43 Dose: 20 gm Documented by: COTEMA Methylprednisolone Sodium Succinate (Methylprednisolone Sod Succ 40 Mg/Ml Vial) 40 mg IVPUSH Q12H [facility] Last Admin: 09/26/21 09:43 Dose: 40 mg Documented by: MONROE Ondansetron HCl (Ondansetron Hcl 4 Mg/2 Ml Vial) 4 mg IVPUSH Q8H PRN PRN Reason: Nausea and Vomiting Last Admin: 09/24/21 18:48 Dose: 4 mg Documented by: ALLI Ondansetron HCl (Ondansetron Hcl 4 Mg/2 Ml Vial) 4 mg IVPUSH ONCE PRN PRN Reason: Nausea and Vomiting Oxycodone HCl (Oxycodone Hcl Immed Release 5 Mg Tablet) 5 mg PO ONCE PRN PRN Reason: Pain, Severe (Pain Scale 7-10) Pharmacy Consult (Consult Rx Perform Med Rec) 1 each MISCELLANE ONCE PRN PRN Reason: Consult order Pharmacy Consult (Consult Rx Vancomycin Dosing) 1 each MISCELLANE DAILY PRN PRN Reason: Consult order Phenazopyridine HCl (Phenazopyridine Hcl 100 Mg Tablet) 100 mg PO BID PRN PRN Reason: Spasm Last Admin: 09/26/21 06:31 Dose: 100 mg Documented by: CASTILM Sodium Chloride (0.9 % Sodium Chloride Flush 3 Ml Syringe) 3 ml IVFLUSH QSHIFT [facility] Last Admin: 09/26/21 07:51 Dose: 3 ml Documented by: HO.COTEMA Tamsulosin HCl (Tamsulosin Hcl 0.4 Mg Capsule) 0.4 mg PO BEDTIME ALEXY Last Admin: 09/25/21 19:29 Dose: 0.4 mg Documented by: CASTILM Tramadol HCl (Tramadol Hcl 50 Mg Tablet) 50 mg PO Q6H PRN PRN Reason: Pain, Moderate (Pain Scale 4-6 Last Admin: 09/25/21 16:03 Dose: 50 mg Documented by: YAW Labs CBC & Chem 7: 09/26/21 05:38 09/26/21 05:38 Labs: Laboratory Results - last 24 hr 09/25/21 09/25/21 09/25/21 14:15 20:33 Unknown MCV MCH MCHC RDW Plt Count MPV Absolute Nucleated RBC Nucleated RBC % (auto) Anion Gap 12 Estim Creat Clear Calc 62.6 Estimated GFR 46 Random Glucose 120 H Lactic Acid 1.2 Calcium 8.2 L B-Natriuretic Peptide Urine Color ORANGE A Urine Appearance TURBID Urine pH 6.0 Ur Specific [place] 1.015 Urine Protein 2+ H Urine Glucose (UA) NEG Urine Ketones NEG Urine Blood 3+ H Urine Nitrite POS H Ur Leukocyte Esterase TRACE H Urine RBC TNTC H Urine WBC 1-4 Ur Squamous Epith Cells TRACE Urine Bacteria TRACE Urine Mucus TRACE 09/26/21 09/26/21 09/26/21 03:52 03:52 05:38 MCV 76.8 L MCH 24.1 L MCHC 31.4 RDW 17.8 H Plt Count 258 MPV 12.2 Absolute Nucleated RBC 0.000 Nucleated RBC % (auto) 0.0 Anion Gap 10 L Estim Creat Clear Calc 88.9 Estimated GFR > 60 Random Glucose 117 H Lactic Acid Calcium 8.0 L B-Natriuretic Peptide 94 Urine Color Urine Appearance Urine pH Ur Specific [place] Urine Protein Urine Glucose (UA) Urine Ketones Urine Blood Urine Nitrite Ur Leukocyte Esterase Urine RBC Urine WBC Ur Squamous Epith Cells Urine Bacteria Urine Mucus 09/26/21 05:38 MCV MCH MCHC RDW Plt Count MPV Absolute Nucleated RBC Nucleated RBC % (auto) Anion Gap 14 Estim Creat Clear Calc 80.8 Estimated GFR > 60 Random Glucose 128 H Lactic Acid Calcium 8.1 L B-Natriuretic Peptide Urine Color Urine Appearance Urine pH Ur Specific [place] Urine Protein Urine Glucose (UA) Urine Ketones Urine Blood Urine Nitrite Ur Leukocyte Esterase Urine RBC Urine WBC Ur Squamous Epith Cells Urine Bacteria Urine Mucus Microbiology Microbiology Results: Microbiology 09/23/21 13:20 Blood Culture - Preliminary Blood - Venous No growth after 48 hours. 09/23/21 13:20 Blood Culture - Preliminary Blood - Venous No growth after 48 hours. Assessment and Plan (1) Pulmonary edema: Status: Acute (2) Acute respiratory failure with hypoxia: Status: Acute (3) Sepsis: Status: Acute (4) Aspiration pneumonia: Status: Acute Plan a 40 years old healthy lady who presents to the hospital with left-sided flank pain for the last 3 days. Sepsis secondary to aspiration pneumonia, pneumonitis repeated blood cultures change IV antibiotics to Zosyn and vancomycin Acute hypoxic respiratory failure 2/2 pulmonary edema and aspiration hold IV fluids Titrate oxygen down as tolerated continue IV Lasix hydronephrosis with ureteric stone CT scan reporting staghorn stone and a smaller rounded stone Urology did cystoscopy with laser lithotripsy and left ureter stent placement Acute kidney injury Creatinine improved back to normal baseline Repeat BMP Monitor intake and output iron deficiency anemia Hemoglobin of 9.6 with low MCV low iron stores continue p.o. ferrous sulfate DVT PPX Early ambulation Quality Stroke Does the patient have a stroke diagnosis?: No VTE Prior VTE?: No VTE Risk Level:: Medical - low VTE Device Contraindication: Treatment Not Indicated VTE Drug Contraindication: Treatment Not Indicated
[2021-09-26] MEDS: Tamsulosin HCL 0.4 MG CAPSULE PO (19:16)
[2021-09-26] MEDS: vancomycin HCL 750 MG in 0.9 % Sodium Chloride 250 ML 265 MG IV (19:16)
[2021-09-27] VITALS: BP 143/73; PULSE 71; RESP 20; TEMP 36.5; O2SAT 95
[2021-09-27] MEDS: Piperacillin Sodium/Tazobactam 3.375 GM in 0.9 % Sodium Chloride 50 ML IV ×2 (03:18→09:01)
[2021-09-27 03:33] VITALS: BP 138/62; PULSE 68; RESP 19; TEMP 36.1; O2SAT 96
[2021-09-27] MEDS: Ferrous Sulfate 324 MG TABLET.DR PO (07:39)
[2021-09-27] MEDS: 0.9 % Sodium Chloride Flush 3 ML SYRINGE IVFLUSH (07:39)
[2021-09-27] MEDS: vancomycin HCL 750 MG in 0.9 % Sodium Chloride 250 ML 265 MG IV (07:40)
[2021-09-27 07:55] VITALS: BP 145/73; PULSE 77; RESP 18; TEMP 36.5; O2SAT 98
[2021-09-27] MEDS: methylPREDNISolone Sod Succ 40 MG/ML VIAL IVPUSH (09:02)
[2021-09-27 09:05] LABS: Anion Gap 13 (12-20); Blood Urea Nitrogen 14 mg/dL (9-16); Carbon Dioxide 23 mmol/L (22-29); Chloride 110 mmol/L (96-108); Creatinine Clr Calc Pharmacy 123.2; Estimated Glomerular Filt Rate > 60; Glucose Random 143 mg/dL (60-115); Sodium 142 mmol/L (135-145)
[2021-09-27 09:46] LABS: Calcium 8.7 mg/dL (8.4-10.2)
--- NOTE | 2021-09-27 10:28 | HE.PHANOTE ---
Vancomycin Dosing Addendum Vancomycin trough scheduled for tonight at 1800. may need to increase dose as cr improved.
--- NOTE | 2021-09-27 11:27 | P.DS_ITS ---
DS: Providers Provider Date of Service: 09/27/21 Date of admission: 09/23/21 17:07 Primary care physician: Unknown Physician Consults: 09/23/21 17:07 Consult to Urology Routine Consulting Provider: Johnie Reynolds Reason for consultation: Sepsis, obstructive stone 09/24/21 15:37 Consult to Critical Care Stat Consulting Provider: Telly Salgado Reason for consultation: Sepsis Has provider been notified: Yes DS: Diagnosis Discharge Diagnosis (1) Pulmonary edema: Status: Acute (2) Acute respiratory failure with hypoxia: Status: Acute (3) Sepsis: Status: Acute (4) Aspiration pneumonia: Status: Acute DS: Summary Hospital Course Hospital Course: Admission note ?a 40 years old healthy lady? who presents to the hospital with left-sided flank pain for the last 3 days.? The patient reports that she started to colicky left- sided slowing and back pain for the last 3 days which has been progressive associated with nausea and episode of vomiting with subjective fever that turned to be above 100 today.? She reported is the 1st time she is going through with this event but she had passed stones before with much lower pain level.? She tried [id number] Tylenol and Advil with no improvement.? In the emergency she was fine febrile, tachycardic with evidence of urine infection.? CT scan was consistent with to stones in her left ureter and evidence of pyelonephritis.? Started IV antibiotics admitted for further evaluation. Hospital course The patient was admitted to the hospital for sepsis secondary to obstructive left ureteric stone with associated Mild acute kidney injury, hydronephrosis and evidence of pyelonephritis treated with IV antibiotics as urology evaluated the patient and had cystoscopy done with retrograde placement of ureteric stent and removal of the stone. Urine and blood cultures remain negative. kidney function improved back to normal baseline. After the procedure the patient developed hypoxic respiratory failure and chest x-ray was concerning for possible fluid overload versus aspiration. The patient was treated with IV Lasix and received steroids for possible pneumonitis as Antibiotics were expanded. Repeated blood cultures remain negative as the patient was weaned off the oxygen. Was noted to have iron-deficiency anemia with low iron stores. Started on iron supplement. Continue Augmentin for 5 more days Continue prednisone for 3 more days Use tamsulosin as prescribed Start iron pills for evidence of anemia To follow-up with Dr. Reynolds in the office in 2-3 weeks. Time Spent with Patient Time attestation: Total time spent providing and/or coordinating discharge services: Discharge coordination time: Greater than 30 minutes Quality: Safe Use of Opioids Does Pt have an Active Cancer Diagnosis on the Problem List?: No Quality: Stroke Does the patient have a stroke diagnosis?: No Physical Exam Vital Signs: Vital Signs: Last Vital Signs Temp 97.7 F 09/27/21 07:55 Pulse 77 09/27/21 07:55 Resp 18 09/27/21 07:55 BP 145/73 H 09/27/21 07:55 Pulse Ox 98 09/27/21 07:55 Oxygen Flow Rate 2 09/26/21 10:48 BMI result Body Mass Index 30.8 Const: Other: Constitutional : Alert, oriented, not in distress Neck : Normal inspection, Supple Cardiovascular : RRR, no JVP, no lower extremity edema, Respiratory : fair bilateral air entry, no crackles, no wheezes or rhonchi Gastrointestinal: soft, lax, Normal bowel sounds, Non tender Skin : Warm, Dry Neurological : Alert & oriented x3, No focal deficit , CN 2-12 within normal DS: Data Data Completed and Pending Completed studies during hospitalization [Text1]: Pending at discharge 09/24/21 14:10 Surgical [PTH] Routine Labs on day of discharge: Laboratory Results - last 24 hr 09/27/21 05:36 Sodium 142 Potassium 4.0 Chloride 110 H Carbon Dioxide 23 Anion Gap 13 BUN 14 Creatinine 0.65 Estim Creat Clear Calc 123.2 Estimated GFR > 60 Random Glucose 143 H Calcium 8.7 D Preliminary micro results at discharge 09/25/21 20:27 Blood Culture - Preliminary Blood - Venous No growth after 24 hours. 09/25/21 20:33 Blood Culture - Preliminary Blood - Venous No growth after 24 hours. 09/23/21 13:20 Blood Culture - Preliminary Blood - Venous No growth after 48 hours. 09/23/21 13:20 Blood Culture - Preliminary Blood - Venous No growth after 48 hours. Discharge Plan Discharge Patient Disposition: Home, Self-Care Discharge Diagnosis: obstructive stone with hydronephrosis and kidney injury Aspiration pneumonia Pulmonary edema Referrals: Physician,Unknown J [Primary Care Provider] - 1 Week Discharge Medications: New tamsulosin 0.4 mg Capsule 0.4 mg PO BEDTIME Qty: 30 0RF ferrous sulfate 324 mg (65 mg iron) Tablet,Delayed Release (Dr/Ec) 324 mg PO DAILY Qty: 30 0RF phenazopyridine 100 mg Tablet 100 mg PO BID PRN (Reason: Spasm) Qty: 30 0RF amoxicillin-pot clavulanate 875-125 mg tablet 1 tab PO BID Qty: 10 0RF prednisone 20 mg tablet 40 mg PO DAILY 3 Days Qty: 6 0RF Discharge Orders: Discharge Order (Routine); Ordered 09/27/21 Ordered By: Cher Negron Diet: advance to usual diet Activity on Discharge: As tolerated Stand Alone Forms: Patient Portal Discharge page Care Plan Goals: Read below Health Concerns: Read below Plan of Treatment: Read below Assessment: you were admitted to the hospital for evaluation of low in pain. Found to have an obstructive stone with kidney injury treated with IV antibiotics as a stent was placed in your left ureter with stone removal. Who developed difficulty breathing and found to have excessive fluids around the lung with possible aspiration pneumonia treated with IV Lasix and antibiotic with addition of steroids with good response as you were weaned off the oxygen. Continue Augmentin for 5 more days Continue prednisone for 3 more days Use tamsulosin as prescribed Start iron pills for evidence of anemia To follow-up with Dr. Reynolds in the office in 2-3 weeks.
[2021-09-29 01:20] LABS: Stone Source KIDNEY STONE
== END 2021-09-27 12:00 | disposition home or self-care (01) | DRG 710 ==
LOC: HO.ED 16:35 → HO.EDOVER 17:25 → HO.S3 22:56
PROVIDERS: Anesthesiology; Internal Medicine; Urology; Admitting Provider Student in an Organized Health Care Education/Training Program; Emergency Provider Emergency Medicine; Visit Provider Student in an Organized Health Care Education/Training Program
PROC: 0TC78ZZ Extirpation of Matter from Left Ureter, Via Natural or Artificial Opening Endoscopic (ICD-10-PCS; principal; 2021-09-24 13:00)
DX: A41.9 Sepsis, unspecified organism (principal); J96.01 Acute respiratory failure with hypoxia; J69.0 Pneumonitis due to inhalation of food and vomit; N13.6 Pyonephrosis; N17.9 Acute kidney failure, unspecified; R65.20 Severe sepsis without septic shock; D50.9 Iron deficiency anemia, unspecified; Z20.822 Contact with and (suspected) exposure to COVID-19; Z87.442 Personal history of urinary calculi; Z91.040 Latex allergy status; Z91.041 Radiographic dye allergy status; Z79.52 Long term (current) use of systemic steroids; Z79.899 Other long term (current) drug therapy
CPT/HCPCS: 36415; 71045; 74176; 80048; 80076; 81001; 81025; 82365; 83540; 83605; 83690; 83880; 85007; 85025; 85027; 87040; 87086; 87635; 88305; 96361; 96374; 99285; C1758; C1769; C1894; C2617; J0131; J0696; J1100; J1200; J1885; J1940; J1956; J2250; J2370; J2405; J2543; J2550; J2920; J3010; J3370; Q9967

== ENCOUNTER → 2021-10-13 10:27 | Outpatient (BNVA) | payer BC, SELFPAY | PROVIDERS: Visit Provider Urology | DX: Z13.89 Encounter for screening for other disorder (principal) ==

== ENCOUNTER 2021-10-26 14:51 | Day surgery (SDC) | payer BC, SELFPAY ==
--- NOTE | ~2021-10-26 | FL_ITS ---
EXAMINATION: XR FLUOROSCOPY WITH IMAGES CLINICAL INFORMATION: Stone COMPARISON: None. TECHNIQUE: Fluoroscopy performed by Dr. Johnie Reynolds. Fluoroscopy time: 28 seconds. Cumulative dose: 8.48 mGy Images: 2 FINDINGS: There is a left ureteral stent in position with proximal end overlying the left renal fossa and the distal end overlying urinary bladder. No clearly visible calculus on fluoroscopic spot view. FL/FL guidance in OR IMPRESSION: Fluoroscopy for urologic procedures.
[2021-10-26 13:52] VITALS: BMI 31.8
[2021-10-26 14:01] VITALS: BP 116/52; PULSE 70; RESP 16; TEMP 36.8; O2SAT 99
--- NOTE | 2021-10-26 14:29 | MHC.SHP ---
Pre-Procedural Eval Section A Date of Service: 10/26/21 The patient is an INPATIENT: No Changes since office visit: No Cold of Flu in the past 2 weeks, No New Medical Problems, No Changes in Medication and No Patient answered all questions The History & Physical has been completed within 30 days and I have reviewed it.: Yes Section B Chief Complaint: kidney stone Allergies: Allergies Allergy/AdvReac Type Severity Reaction Status Date / Time Iodinated Contrast Media Allergy Unknown Unknown Verified 10/26/21 13:49 Latex, Natural Rubber Allergy Unknown Verified 10/26/21 13:49 shell fish Allergy Unknown Uncoded 09/24/21 03:48 Plan Diagnosis/Plan: Unchanged ( cystoscopy, left stent removal, left ureteroscopy with laser lithotripsy stent placement) I have reviewed the history and physical and performed a pertinent physical examination on my patient. No changes have occurred unless specified.
--- NOTE | 2021-10-26 14:37 | HO.ANESPROP2 ---
HPI - Anesthesia Eval Consult details Narrative: 40yo female patient for cystoscopy, left stent removal, ureteroscopy, laser lithotripsy, stent placement left ureter PMFSH Active Problems Active Problems: All Active Problems (Updated 10/13/21 @ 10:53 by Johnie Reynolds MD) Nephrolithiasis (Acute) Pyelonephritis (Acute) Sepsis with last admission for nephrolithiasis, pyelonephritis Pulmonary edema Past Medical History Medical History (Updated 10/13/21 @ 10:53 by Johnie Reynolds MD) Kidney stone Family History Family history of problems with anesthesia: No Surgical History Surgical History (Updated 10/26/21 @ 14:43 by Lauren Cam MD) H/O tubal ligation Previous section History of Problems with Anesthesia: No Social History Social History Household Members: Family Housing: House Do you presently have visiting nurse or other home services: No Patient Tobacco Use Status: Never used Tobacco Use of substances other than those prescribed or required for medical reasons: No Are you DNR?: No Advance Directives Date on File: 09/24/21 service: No Current occupational status: employed Meds Allergies Allergy/AdvReac Type Severity Reaction Status Date / Time Iodinated Contrast Media Allergy Unknown Unknown Verified 10/26/21 13:49 Latex, Natural Rubber Allergy Unknown Verified 10/26/21 13:49 shell fish Allergy Unknown Uncoded 09/24/21 03:48 Active Medications: Current Medications Lactated Ringer's (Lr) 1,000 mls @ 100 mls/hr IVCONT .Q10H ALEXY Exam Exam Date and Time: October 26, 2021 1437 Height,Weight and Vital Signs: Height 5 ft 3 in Weight 81.647 kg Last Vital Signs Temp 98.2 F 10/26/21 14:01 Pulse 70 10/26/21 14:01 Resp 16 10/26/21 14:01 BP 116/52 L 10/26/21 14:01 Pulse Ox 99 10/26/21 14:01 Airway Mallampati Class: II TM Dist: >3cm Neck ROM: Full Loose/Missing/Broken Teeth: No Heart: RRR Lungs: CTAB Assessment and Plan Assessment Anesthesia Assessment: Anesthesia Plan Discussed and Chart Reviewed Final Anesthetic Review Family History of Problems with Anesthesia: No History of Problems with Anesthesia: No NPO: Yes Final Preanesthetic Review: No Changes in Pt Med Stat, Meds/Allgs Chart Reviewed, Consent Obtained/Reviewed and Anes Risks/Benef Reviewed Patient Risk: Low Procedure Risk: Low Assessment/Block/Sedation in SS: Assess/Block/Sedation-SS Anesthetic Plan Anesthetic Plan: GA Disposition: Standard PACU
[2021-10-26] MEDS: levoFLOXacin 500 MG TABLET PO (14:56)
[2021-10-26] MEDS: Lactated Ringers 1,000 ML 100 ML IVCONT (14:56)
[2021-10-26 15:46] VITALS: BP 115/70; PULSE 82; RESP 16; TEMP 36.3; O2SAT 100
[2021-10-26 15:51] VITALS: BP 118/70; PULSE 61; RESP 18; O2SAT 100
[2021-10-26 15:56] VITALS: BP 130/73; PULSE 60; RESP 18; O2SAT 100
[2021-10-26 16:01] VITALS: BP 127/73; PULSE 55; RESP 18; O2SAT 100
[2021-10-26 16:16] VITALS: BP 131/73; PULSE 59; RESP 18; O2SAT 100
--- NOTE | 2021-10-26 21:36 | P.OP_ITS ---
Operative Note Operative Note Date of Service: 10/26/21 Narrative: PreOperative Diagnosis: Left renal stones Post Operative Diagnosis: Left renal stones Procedure: - cystoscopy, removal of left indwelling stent - left dilatation of ureteric orifice under fluoroscopy - left flexible ureteroscopy, laser lithotripsy, stone basketing - left stent placement Surgeon: Dr Johnie Reynolds Anesthesia: General Indications for procedure: Original presentation last month with infection and large renal stones. Had undergone initial ureteroscopy with laser lithotripsy. Here for removal of stent and review of stone remnants. 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 Anesthesia was administered per protocol. Patient was placed in modified dorsal lithotomy position and prepped and draped in a sterile fashion. Safety pause time-out and side of surgery confirmed. Antibiotics confirmed. 22 Qatari cystoscope was inserted per urethra. Bladder was normal in its entirety. Both ureteric orifices were in normal position. The indwelling left ureteric stent was removed. A wire was placed through the stent up to the level renal pelvis. The rigid cystoscope was removed and the inner cannula of ureteric access sheath was used under fluoroscopy to dilate the ureteric orifice. The ureteric access sheath was placed and the inner cannula with access wire removed. The digital flexible ureteral scope was placed. The renal pelvis was examined. There were many small stone fragments my prior procedure. The renal pelvis was washed. The bulk of remnant stone was found in the lower pole. Using a 265 nm laser fiber the stones in the lower pole area were broken. They were imbedded within tissue. A 0 tip basket was used to remove fragments. A 7 Qatari by 26 cm double-J stent was placed into the renal pelvis and bladder under a combination of fluoroscopy and direct visualization. The bladder was emptied. The patient tolerated the procedure well and was extubated in the operating room, and transferred in stable condition to the recovery area. Pathology: Stone fragments Drains: 7 Qat[place] by 26 cm stent
[2021-10-31 21:32] LABS: Stone Source KIDNEY STONE
== END 2021-10-26 17:00 | disposition home or self-care (01) ==
PROVIDERS: Visit Provider Urology
PROC: (CPT 52356; principal; 2021-10-26 15:30)
DX: N20.0 Calculus of kidney (principal); Z96.0 Presence of urogenital implants; Z91.040 Latex allergy status; Z91.041 Radiographic dye allergy status
CPT/HCPCS: 52356; 52352; 82365; 88300; C1758; C1769; C1894; C2617; J1100; J1885; J2250; J2405; J3010; Q9967

== ENCOUNTER → 2021-11-10 14:47 | Outpatient (BNVA) | payer BC, SELFPAY | PROVIDERS: Visit Provider Urology | DX: N20.0 Calculus of kidney (principal); N12 Tubulo-interstitial nephritis, not specified as acute or chronic | CPT/HCPCS: 52310 ==

== ENCOUNTER 2022-01-29 15:15 | Outpatient (REF) | payer BC, SELFPAY ==
--- NOTE | ~2022-01-29 | US_ITS ---
EXAMINATION: US RETROPERITONEAL LIMITED (RENAL ONLY) CLINICAL INFORMATION: Calculus of kidney. COMPARISON: CT abdomen and pelvis 09/23/2021. TECHNIQUE: Real-time imaging of the kidneys. FINDINGS: RIGHT KIDNEY: 11.1 x 5.8 x 6.7 cm (SAG x AP x TRV). The kidney is normal in size, contour, and echogenicity. Renal cortical thickness is normal. No focal parenchymal lesions or hydronephrosis. Several nonobstructing renal stones measuring up to 6 mm in the lower pole. LEFT KIDNEY: 11.3 x 6.1 x 5.6 cm (SAG x AP x TRV). The kidney is normal in size, contour, and echogenicity. Renal cortical thickness is normal. No focal parenchymal lesions. Multiple nonobstructing renal stones measuring up to 8 mm in the lower pole. Mild left hydroureteronephrosis similar to prior. BLADDER: Bilateral ureteral jets are demonstrated. US/US renal BI IMPRESSION: Mild left hydronephrosis similar to prior. Multiple nonobstructing bilateral renal stones are seen measuring up to 6 mm in the right lower pole and 8 mm in the left lower pole. An obstructing stone is not identified however if clinical concern a CT stone protocol could be obtained.
== END 2022-01-29 15:16 | disposition home or self-care (01) ==
LOC: HO.HMGCX 15:15
PROVIDERS: Visit Provider Urology
DX: N20.0 Calculus of kidney (principal)
CPT/HCPCS: 76775

== ENCOUNTER 2022-08-10 07:31 | Emergency (ER) | payer BC, SELFPAY ==
--- NOTE | ~2022-08-10 | CT_ITS ---
EXAMINATION: CT ABDOMEN AND PELVIS WITHOUT CONTRAST CLINICAL INFORMATION: Abdominal pain COMPARISON: 09/23/2021 TECHNIQUE: Multidetector volumetric imaging was performed from the superior aspect of the liver through the pubic symphysis. Sagittal and coronal reformatted images were obtained on the technologist's workstation. This CT examination was performed using dose optimization techniques as appropriate, variously including the following: *Automated exposure control *Adjustment of mA and/or kV according to patient size (this includes techniques or standardized protocols for targeted exams where dose is matched to indication/reason for exam; i.e. extremities or head) *Use of iterative reconstruction technique DLP: 688 mGy-cm FINDINGS: LUNG BASES: The visualized lung bases are unremarkable. LIVER, GALLBLADDER, AND BILIARY TREE: The liver is normal in size, shape, and attenuation. No focal hepatic lesion or biliary ductal dilatation is present. The gallbladder is unremarkable with no evidence of radiopaque gallstones, gallbladder wall thickening, or obvious pericholecystic inflammatory changes. PANCREAS: Unremarkable. SPLEEN: Unremarkable. ADRENAL GLANDS: Unremarkable. KIDNEYS AND URETERS: The kidneys are normal in size, shape, and attenuation. Mild left hydroureteronephrosis. No obstructing calculus seen at this time. 0.2 cm left upper pole nonobstructing calculus is 7 cm from the posterior axillary line. There are at least 6 right sided calculi. The largest is seen at the lower pole measuring 0.3 cm, 10 cm from the posterior axillary line. BLADDER: Unremarkable. GASTROINTESTINAL TRACT: The small and large bowel are unremarkable. The appendix is unremarkable. ABDOMINAL WALL: No significant hernia is appreciated. LYMPH NODES: Normal. VASCULAR: Unremarkable. PELVIC VISCERA: Retroverted uterus. No adnexal mass. OSSEOUS STRUCTURES: No acute or suspicious osseous abnormality. CT/CT abdomen pelvis wo IV con IMPRESSION: 1. Mild left hydroureteronephrosis. No obstructing calculus seen at this time. This could be associated with a recently passed stone. 2. Nonobstructing bilateral renal calculi. Fleischner guidelines were followed.
[2022-08-10 07:37] VITALS: BP 144/73; PULSE 109; RESP 18; TEMP 37.6; O2SAT 99; BMI 30.9
[2022-08-10 07:45] LABS: MANUAL DIFF FLAG NO
[2022-08-10 07:58] LABS: Basophils Percent Auto 0.2 % (0-2); Eosinophils Percent Auto 0.2 % (0-4); Hematocrit 32.9 % (37.0-47.0); Hemoglobin 10.3 g/dl (12.0-16.0); Imm Gran Abs Auto 0.05 X10*3/uL (0.00-0.03); Imm Gran Pct Auto 0.4 % (0.0-0.4); Lymphocytes Absolute Auto 0.8 X10*3/uL (1.2-4.9); Lymphocytes Percent Auto 5.6 % (20-40); Mean Corpuscular HGB Conc 31.3 g/dl (31.0-35.0); Mean Corpuscular Hemoglobin 25.4 pg (27.0-33.0); Mean Platelet Volume 11.1 fL (9.4-12.3); Monocytes Absolute Auto 0.8 X10*3/uL (0.1-1.2); Monocytes Percent Auto 5.7 % (2-11); Neutrophils Absolute Auto 11.9 x10*3/uL (2.0-8.3); Neutrophils Percent Auto 87.9 % (45-73); Platelet Count 333 X10*3/uL (160-400); Red Blood Count 4.06 X10*6/uL (4.20-5.50); Red Cell Distribution Width 15.6 % (11.0-16.0); White Blood Count 13.6 X10*3/uL (4.8-10.8)
--- NOTE | 2022-08-10 08:03 | ED.GENADULT ---
HPI - General Adult General Chief complaint: Abdominal Pain Stated complaint: Fever/Kidney pain Time Seen by Provider: 08/10/22 08:03 Source: patient Mode of arrival: ambulatory Limitations: no limitations History of Present Illness HPI narrative: Pt is a 41 y/o female with history of kidney stones, pyelonephritis, and sepsis with a hospital stay in September 2021, cc bilateral flank pain/tenderness with fever and nausea. Pt states the pain started yesterday and this morning she had a fever of 102.8. She took tylenol and ibuprofen around 0600. She states her urologist is Dr. Reynolds and she has had 2 stents placed and removed in the left kidney back in September and she adds that she knows she has some stones in the left kidney currently. Pt denies cp, sob, dizziness, vomiting, abd pain, hematuria, or dysuria. Onset (ago): day(s) (1) Location: back (bilat flank) Radiation: flank (bilat with left side more severe than right) Severity: similar to prior episodes Severity scale (1-10): 4 Quality: aching Pain Consistency: constant Relieving factors: none Exacerbating factors: none Associated symptoms: fever/chills and nausea/vomiting Treatments prior to arrival: NSAID and other (tylenol) Related Data Previous Rx's Medication Instructions Recorded phenazopyridine 100 mg tablet 100 mg PO BID PRN Spasm #30 tabs 09/27/21 tamsulosin 0.4 mg capsule 0.4 mg PO BEDTIME #30 caps 09/27/21 doxycycline monohydrate 100 mg 100 mg PO DAILY 90 days #90 caps 09/29/21 capsule (Monodox) naproxen 375 mg tablet,delayed 375 mg PO Q12H PRN pain #20 tabs 10/26/21 release (EC-Naprosyn) phenazopyridine 100 mg tablet 100 mg PO TID PRN spasm 4 days #12 10/26/21 (Pyridium) tabs tamsulosin 0.4 mg capsule 0.4 mg PO BEDTIME 14 days #14 caps 10/26/21 cephalexin 500 mg capsule 500 mg PO Q6H 7 days #28 caps 08/10/22 ondansetron 4 mg disintegrating 4 mg PO Q8H 3 days #9 tabs 08/10/22 tablet Allergies Allergy/AdvReac Type Severity Reaction Status Date / Time Iodinated Contrast Media Allergy Unknown Unknown Verified 02/16/22 12:20 Latex, Natural Rubber Allergy Unknown Verified 02/16/22 12:20 shell fish Allergy Unknown Uncoded 02/16/22 12:20 Review of Systems Constitutional: Constitutional: Reports no additional constitutional complaints, Denies chills, Denies fever(s) and Denies night sweats Eyes: Eyes: Reports no additional eye complaints, Denies blurry vision, Denies change in vision, Denies diplopia, Denies eye discharge, Denies loss of vision and Denies eye pain ENT: Denies dizziness Cardiovascular: Cardiovascular: Reports no additional cardiovascular complaints, Denies chest pain, Denies lightheadedness, Denies Loss of Consciousness and Denies dyspnea Respiratory: Respiratory: Reports no additional respiratory complaints and Denies dyspnea Gastrointestinal: Gastrointestinal: Reports no additional gastrointestinal complaints, Denies abdominal pain, Denies melena, Denies hematochezia, Denies change in bowel habits, Denies change in stool character, Reports nausea and Denies vomiting Genitourinary: Genitourinary: Denies hematuria, Denies urinary frequency, Denies dysuria, Reports flank pain, Denies urinary incontinence, Denies urinary hesitancy and Denies urinary urgency Musculoskeletal: Musculoskeletal: Reports no additional musculoskeletal complaints, Denies numbness and Denies tingling Neurologic: Denies dizziness, Denies loss of vision, Denies numbness and Denies tingling Psychiatric: Psychiatric: Reports no additional psychiatric complaints Endocrine: Endocrine: Reports no additional endocrine complaints Hematologic/Lymphatic: Hematologic/Lymphatic: Reports no additional hematologic/lymphatic complaints Allergic/Immunologic: Allergic/Immunologic: Reports no additional allergic/immunologic complaints [facility] Past Medical History Attestation statement: The following information was validated with the patient. Source: old records reviewed and nursing notes reviewed Medical History Kidney stone Surgical History H/O tubal ligation Previous section Social History Social History Household Members: Family Housing: House Do you presently have visiting nurse or other home services: No Alcohol intake: current Alcohol intake frequency: holidays/special occasions only Alcohol type: wine Patient Tobacco Use Status: Never used Tobacco Smoked in Last 30 Days: No Use of substances other than those prescribed or required for medical reasons: No Advance Directives: Yes Advance Directives Information Provided: Yes Advance Directives on File: No Advance Directives Date on File: 09/24/21 Patient : No service: No Current occupational status: employed Physical Exam ED Vital Signs: Vital Signs - 24 hr 08/10/22 07:37 08/10/22 08:23 08/10/22 09:10 Temperature 99.6 F 99.8 F 100.1 F Pulse Rate 109 H 98 100 Respiratory Rate 18 18 16 Blood Pressure 144/73 H 122/61 118/65 Pulse Oximetry 99 100 Oxygen Delivery Method Room Air Room Air 08/10/22 10:24 Temperature 100.3 F Pulse Rate 93 Respiratory Rate 18 Blood Pressure 116/61 Pulse Oximetry Oxygen Delivery Method BMI result Body Mass Index 30.9 Const General: cooperative, no acute distress, alert and awake Nutritional Appearance: well nourished Orientation/consciousness: patient oriented x3 Limitations: no limitations HENMT Head: Yes normal to inspection and Yes atraumatic Ears: hearing grossly normal bilaterally and external ears normal General nose exam: Normal external nose present, no nasal discharge noted and no epistaxis Face and sinus: Yes normal facial exam, No abrasion and No laceration Mouth: Normal oral and palatal mucosa present, no drooling and no muffled voice Eyes General: appearance normal, both eyes and all related structures Periorbital: periorbital findings normal Eyelids: Yes eyelids normal Conjunctivae: conjunctivae normal Pupils: Equal, round and reactive pupils present EOM: EOMs intact bilaterally Neck Neck: Yes normal visual inspection, Yes full ROM and Yes no lymphadenopathy Chest Chest palpation & inspection: normal inspection of the chest Resp Effort & Inspection: normal respiratory effort and able to speak in complete sentences Auscultation: clear to auscultation bilaterally Cardio Rate: regular rate Rhythm: regular rhythm GI Inspection: Yes normal to inspection Palpation (GI): Soft to palpation, not firm, nontender, no guarding, not rigid and No hepatosplenomegaly present Auscultation: normal bowel sounds General: Yes CVA tenderness bilateral Back/Spine/Pelvis Back: CVA tenderness Neuro General: patient oriented x3 and moves all extremities Cranial nerves: Yes Equal, round and reactive pupils present Cognition (Neuro): normal cognition Motor exam (neuro): 5/5 motor strength present throughout Sensory Exam: Normal double simultaneous stimulation for sensation Coordination: [id number] test normal Extrem General: Yes normal to inspection, Yes full ROM and Yes capillary refill normal Psych Appearance: grossly normal Mental Status: mental status grossly normal Affect: normal affect Attitude: cooperative Thought process: Normal thought process present Thought content: Normal thought content present Insight: Good insight present (Psych) Medications Administered Discontinued Medications Generic Name Dose Route Start Last Admin Trade Name Jasmin PRN Reason Stop Dose Admin Sodium Chloride 2,381.37 mls @ 2,381.37 mls/hr 08/10/22 08:05 08/10/22 09:07 Ns 30 ml/kg infuse over 1 hr (2381.37 ml) 08/10/22 09:04 2,381.37 mls/hr IV Administration .Q1H STA Ceftriaxone Sodium 1 gm/ 50 mls @ 100 mls/hr 08/10/22 08:17 08/10/22 09:57 Sodium Chloride IV 08/10/22 08:46 Infused ONCE ONE Infusion Ketorolac Tromethamine 15 mg 08/10/22 09:38 08/10/22 10:00 Ketorolac Tromethamine 15 Mg/Ml Vial IVPUSH 08/10/22 09:39 15 mg ONCE ONE Administration Ondansetron HCl 4 mg 08/10/22 08:17 08/10/22 09:07 Ondansetron Hcl 4 Mg/2 Ml Vial IVPUSH 08/10/22 08:18 4 mg ONCE ONE Administration Medical Decision Making Medical Decision Making [facility] Narrative: Patient is a 41 year old assigned female at with a history of pyelonephritis, kidney stones, and sepsis presenting to the emergency department today with left sided flank pain and nausea. Patient's physical exam showed mild tachycardia. Patient's blood work showed mild WBC count elevation of 13.6. Patient's urine showed an acute infection. Patient's abdomen / pelvis CT showed mild left hydroureternephrosis with no obstructing stones. Patient's clinical presentation is not consistent with sepsis. However, it is consistent with pyelonephritis. Patient is able to tolerate PO intake. I spoke to Dr. Reynolds who agreed the patient is OK for discharge on PO antibiotics and f/u in the clinic this week. I explained my physical exam findings as well as all test results to the patient. I answered all questions asked by the patient. Patient received IV fluids, toradol, and ceftriaxone which she stated helped her symptoms significantly. I stressed the importance of the patient taking her medication as prescribed. I stressed the importance of the patient following up with her primary care provider and her urologist - this week. I stressed the importance of the patient returning to the emergency department immediately if her symptoms were to worsen or if she were to develop any dizziness, shortness of breath, difficulty breathing, chest pain, blurry vision, loss of vision, nausea, vomiting, abdominal pain, fever, chills, back pain, or any other complaints. Patient verbalized agreement and understanding with this treatment plan and discharge. Differential Diagnosis Differential Diagnoses: The differential diagnosis associated with the presentation includes pyelonephritis, renal calculi, UTI Consult Healthcare Provider Management of the patient was discussed with: Passenger Service Manager (spoke to urology who agreed with discharge on oral ABX and follow up this week) Lab Data MDM Lab Attestation statement: I reviewed the patient's lab results. 08/10/22 07:42 08/10/22 07:42 Labs: Lab Results 08/10/22 08/10/22 08/10/22 Range/Units 07:42 07:42 08:45 WBC 13.6 H (4.8-10.8) X10*3/uL RBC 4.06 L D (4.20-5.50) X10*6/uL Hgb 10.3 L D (12.0-16.0) g/dl Hct 32.9 L D (37.0-47.0) % MCV 81.0 (80.0-98.0) fL MCH 25.4 L (27.0-33.0) pg MCHC 31.3 (31.0-35.0) g/dl RDW 15.6 (11.0-16.0) % Plt Count 333 D (160-400) X10*3/uL MPV 11.1 (9.4-12.3) fL Immature Gran % (Auto) 0.4 (0.0-0.4) % Neut % (Auto) 87.9 H (45-73) % Lymph % (Auto) 5.6 L (20-40) % [place] % (Auto) 5.7 (2-11) % Eos % (Auto) 0.2 (0-4) % Baso % (Auto) 0.2 (0-2) % Lymph # (Auto) 0.8 L (1.2-4.9) X10*3/uL [place] # (Auto) 0.8 (0.1-1.2) X10*3/uL Eos # (Auto) 0.0 (0.0-0.4) X10*3/uL Baso # (Auto) 0.0 (0.0-0.2) X10*3/uL Abs Immat Gran (auto) 0.05 H (0.00-0.03) X10*3/uL Absolute Neuts (auto) 11.9 H (2.0-8.3) x10*3/uL Absolute Nucleated RBC 0.000 (0.0-0.012) X10*3/uL Nucleated RBC % (auto) 0.0 (0.0-0.2) /100WBC Sodium 138 (135-145) mmol/L Potassium 4.2 (3.3-5.1) mmol/L Chloride 106 (96-108) mmol/L Carbon Dioxide 23 (22-29) mmol/L Anion Gap 13 (12-20) BUN 8 L (9-16) mg/dL Creatinine 0.73 (0.5-1.4) mg/dL Estim Creat Clear Calc 101.2 Estimated GFR > 60 Random Glucose 113 (60-115) mg/dL Calcium 8.7 (8.4-10.2) mg/dL Total Bilirubin 0.4 (0.0-1.0) mg/dL AST 13 (5-31) U/L ALT 14 (0-31) U/L Alkaline Phosphatase 86 (39-117) U/L Total Protein 7.0 (6.5-8.0) g/dL Albumin 4.3 (3.5-5.0) g/dL Beta HCG, Quant < 2 mIU/mL Urine Color Urine Appearance Urine pH (5.0-9.0) Ur Specific Hollister (1.005-1.025) Urine Protein (Neg-Trace) mg/dL Urine Glucose (UA) (Negative) mg/dL Urine Ketones (Negative) mg/dL Urine Blood (Negative) Urine Nitrite (Negative) Ur Leukocyte Esterase (Negative) Urine RBC (0-2) /HPF Urine WBC (0-5) /HPF Ur Squamous Epith Cells (0-2) /HPF Urine Bacteria (None Seen) Hyaline Casts (0-2) /LPF COVID-19 ([facility]NIA) Negative (Negative) COVID-19 Clin Com See Note 08/10/22 Range/Units 09:24 WBC (4.8-10.8) X10*3/uL RBC (4.20-5.50) X10*6/uL Hgb (12.0-16.0) g/dl Hct (37.0-47.0) % MCV (80.0-98.0) fL MCH (27.0-33.0) pg MCHC (31.0-35.0) g/dl RDW (11.0-16.0) % Plt Count (160-400) X10*3/uL MPV (9.4-12.3) fL Immature Gran % (Auto) (0.0-0.4) % Neut % (Auto) (45-73) % Lymph % (Auto) (20-40) % Houghton % (Auto) (2-11) % Eos % (Auto) (0-4) % Baso % (Auto) (0-2) % Lymph # (Auto) (1.2-4.9) X10*3/uL [place] # (Auto) (0.1-1.2) X10*3/uL Eos # (Auto) (0.0-0.4) X10*3/uL Baso # (Auto) (0.0-0.2) X10*3/uL Abs Immat Gran (auto) (0.00-0.03) X10*3/uL Absolute Neuts (auto) (2.0-8.3) x10*3/uL Absolute Nucleated RBC (0.0-0.012) X10*3/uL Nucleated RBC % (auto) (0.0-0.2) /100WBC Sodium (135-145) mmol/L Potassium (3.3-5.1) mmol/L Chloride (96-108) mmol/L Carbon Dioxide (22-29) mmol/L Anion Gap (12-20) BUN (9-16) mg/dL Creatinine (0.5-1.4) mg/dL Estim Creat Clear Calc Estimated GFR Random Glucose (60-115) mg/dL Calcium (8.4-10.2) mg/dL Total Bilirubin (0.0-1.0) mg/dL AST (5-31) U/L ALT (0-31) U/L Alkaline Phosphatase (39-117) U/L Total Protein (6.5-8.0) g/dL Albumin (3.5-5.0) g/dL Beta HCG, Quant mIU/mL Urine Color Yellow Urine Appearance Cloudy Urine pH 8.0 (5.0-9.0) Ur Specific Hollister 1.015 (1.005-1.025) Urine Protein 30 (1+) H (Neg-Trace) mg/dL Urine Glucose (UA) Negative (Negative) mg/dL Urine Ketones Negative (Negative) mg/dL Urine Blood Negative (Negative) Urine Nitrite Negative (Negative) Ur Leukocyte Esterase Small (1+) H (Negative) Urine RBC 3-5 H (0-2) /HPF Urine WBC 21-50 H (0-5) /HPF Ur Squamous Epith Cells 3-5 (0-2) /HPF Urine Bacteria 4+ (None Seen) Hyaline Casts 0-2 (0-2) /LPF COVID-19 ([facility]) (Negative) COVID-19 Clin Com Independent Interpretation I performed an independent interpretation of an: CT Scan Interpretation: My interpretation is in agreement with the radiologist's impression of this imaging study. EXAMINATION: CT ABDOMEN AND PELVIS WITHOUT CONTRAST? CLINICAL INFORMATION: Abdominal pain? COMPARISON: 09/23/2021? TECHNIQUE: Multidetector volumetric imaging was performed from the superior aspect of the liver through the pubic symphysis. Sagittal and coronal reformatted images were obtained on the technologist's workstation.? This CT examination was performed using dose optimization techniques as appropriate, variously including the following: *Automated exposure control *Adjustment of mA and/or kV according to patient size (this includes techniques or standardized protocols for targeted exams where dose is matched to indication/reason for exam; i.e. extremities or head) *Use of iterative reconstruction technique DLP: 688 mGy-cm FINDINGS: LUNG BASES: The visualized lung bases are unremarkable.? LIVER, GALLBLADDER, AND BILIARY TREE: The liver is normal in size, shape, and attenuation. No focal hepatic lesion or biliary ductal dilatation is present. The gallbladder is unremarkable with no evidence of radiopaque gallstones, gallbladder wall thickening, or obvious pericholecystic inflammatory changes.? PANCREAS: Unremarkable.? SPLEEN: Unremarkable.? ADRENAL GLANDS: Unremarkable.? KIDNEYS AND URETERS: The kidneys are normal in size, shape, and attenuation. Mild left hydroureteronephrosis. No obstructing calculus seen at this time. 0.2 cm left upper pole nonobstructing calculus is 7 cm from the posterior axillary line. There are at least 6 right sided calculi. The largest is seen at the lower pole measuring 0.3 cm, 10 cm from the posterior axillary line. BLADDER: Unremarkable.? GASTROINTESTINAL TRACT: The small and large bowel are unremarkable. The appendix is unremarkable.? ABDOMINAL WALL: No significant hernia is appreciated.? LYMPH NODES: Normal. VASCULAR: Unremarkable. PELVIC VISCERA: Retroverted uterus. No adnexal mass.? OSSEOUS STRUCTURES: No acute or suspicious osseous abnormality.? CT/CT abdomen pelvis wo IV con IMPRESSION: 1.? Mild left hydroureteronephrosis. No obstructing calculus seen at this time. This could be associated with a recently passed stone. 2.? Nonobstructing bilateral renal calculi. ? Fleischner guidelines were followed. Dictated By: Jared Marcelino MD Signed By: Electronically signed by Jared Marcelino MD 08/10/22 1002 Critical Care Time Critical Care Time Critical Care Time: Yes Total Critical Care Time: 30 Attestation: I spent 30 minutes of Critical Care Time with this patient. This does not include time spent on separately reported billable procedures. Discharge Plan Discharge Clinical Impression: Pyelonephritis Patient Disposition: Home, Self-Care Instructions: Kidney Infection (ED) Additional Instructions: Follow up with your primary care provider and urologist. Return to the emergency department immediately if your symptoms worsen or if you develop any dizziness, shortness of breath, difficulty breathing, chest pain, blurry vision, loss of vision, nausea, vomiting, abdominal pain, fever, chills, back pain, or any other complaints. Prescriptions: New cephalexin 500 mg capsule 500 mg PO Q6H 7 Days Qty: 28 0RF ondansetron 4 mg tablet,disintegrating 4 mg PO Q8H 3 Days Qty: 9 0RF No Action doxycycline monohydrate [Monodox] 100 mg capsule 100 mg PO DAILY 90 Days Qty: 90 0RF tamsulosin 0.4 mg Capsule 0.4 mg PO BEDTIME Qty: 30 0RF phenazopyridine 100 mg Tablet 100 mg PO BID PRN (Reason: Spasm) Qty: 30 0RF phenazopyridine [Pyridium] 100 mg tablet 100 mg PO TID PRN (Reason: spasm) 4 Days Qty: 12 0RF tamsulosin 0.4 mg capsule 0.4 mg PO BEDTIME 14 Days Qty: 14 0RF naproxen [EC-Naprosyn] 375 mg tablet,delayed release (DR/EC) 375 mg PO Q12H PRN (Reason: pain) Qty: 20 0RF naproxen 500 mg tablet 500 mg PO ONCE Qty: 1 0RF Referrals: [facility] [Provider Group] (Call to follow up this week with Dr. Reynolds.) Rashmi De CNP [Primary Care Provider] - Stand Alone Forms: Work/School Release Print Language: Danish
[2022-08-10 08:11] LABS: Alanine Aminotransferase 14 U/L (0-31); Albumin Level 4.3 g/dL (3.5-5.0); Alkaline Phosphatase 86 U/L (39-117); Anion Gap 13 (12-20); Aspartate Amino Transferase 13 U/L (5-31); Bilirubin Total 0.4 mg/dL (0.0-1.0); Blood Urea Nitrogen 8 mg/dL (9-16); Calcium 8.7 mg/dL (8.4-10.2); Carbon Dioxide 23 mmol/L (22-29); Chloride 106 mmol/L (96-108); Creatinine Clr Calc Pharmacy 101.2; Estimated Glomerular Filt Rate > 60; Glucose Random 113 mg/dL (60-115); HCG Quantitative < 2 mIU/mL; Potassium 4.2 mmol/L (3.3-5.1); Sodium 138 mmol/L (135-145)
[2022-08-10 08:23] VITALS: BP 122/61; PULSE 98; RESP 18; TEMP 37.7
[2022-08-10] MEDS: ondansetron HCL 4 MG/2 ML VIAL IVPUSH (09:07)
[2022-08-10] MEDS: 0.9 % Sodium Chloride 2,381.37 ML 2381.37 ML IV (09:07)
[2022-08-10] MEDS: cefTRIAXone sodium 1 GM in 0.9 % Sodium Chloride 50 ML IV (09:07)
[2022-08-10 09:10] VITALS: BP 118/65; PULSE 100; RESP 16; TEMP 37.8; O2SAT 100
[2022-08-10 09:12] LABS: COVID-19 Test Negative (Negative); IDNOW Serial# BCCEAD1C
[2022-08-10 09:30] LABS: Appearance Urine Cloudy; Color Urine Yellow; Glucose Urine UA Negative (Negative); Leukocyte Esterase Urine Small (1+) (Negative); Nitrite Urine Negative (Negative); Specific Gravity - Urine 1.015 (1.005-1.025); UMIC TRIGGER UACC YES; Urine Blood Negative (Negative); Urine Ketones Negative (Negative); Urine Protein 30 (1+) mg/dL (Neg-Trace)
[2022-08-10 09:35] LABS: Bacteria Urine 4+ (None Seen); Hyaline Casts Urine 0-2 /LPF (0-2); UACC Culture Trigger YES; WBC Urine 21-50 /HPF (0-5)
[2022-08-10] MEDS: Ketorolac Tromethamine 15 MG/ML VIAL IVPUSH (10:00)
[2022-08-10 10:24] VITALS: BP 116/61; PULSE 93; RESP 18; TEMP 37.9
== END 2022-08-10 11:10 | disposition home or self-care (01) ==
PROVIDERS: Physician Assistant Medical; Emergency Provider Emergency Medicine; PCP Nurse Practitioner Family
DX: N12 Tubulo-interstitial nephritis, not specified as acute or chronic (principal); R50.9 Fever, unspecified; R11.2 Nausea with vomiting, unspecified; Z20.822 Contact with and (suspected) exposure to COVID-19; Z20.828 Contact with and (suspected) exposure to other viral communicable diseases; Z79.899 Other long term (current) drug therapy
CPT/HCPCS: 36415; 74176; 80053; 81001; 84702; 85025; 87040; 87086; 87088; 87186; 87635; 96361; 96365; 96375; 99284; 99285; J0696; J1885; J2405

== ENCOUNTER → 2022-08-12 08:24 | Outpatient (BNVA) | payer BC, SELFPAY | PROVIDERS: PCP Nurse Practitioner Family; Visit Provider Urology | DX: Z13.89 Encounter for screening for other disorder (principal) ==

== ENCOUNTER → 2023-02-01 14:33 | Outpatient (BNV) | payer BC, SELFPAY | PROVIDERS: PCP Nurse Practitioner Family; Visit Provider Internal Medicine | DX: D50.0 Iron deficiency anemia secondary to blood loss (chronic) (principal); N92.0 Excessive and frequent menstruation with regular cycle | CPT/HCPCS: 99204 ==

== ENCOUNTER 2023-02-04 15:37 | Outpatient (REF) | payer BC, SELFPAY ==
--- NOTE | ~2023-02-04 | US_ITS ---
EXAMINATION: US RETROPERITONEAL LIMITED (RENAL ONLY) CLINICAL INFORMATION: Calculus of kidney. COMPARISON: PET abdomen and pelvis 08/10/2022. Renal ultrasound 01/29/2022. TECHNIQUE: Real-time imaging of the kidneys. FINDINGS: RIGHT KIDNEY: 11.0 x 4.7 x 6.1 cm (SAG x AP x TRV). The kidney is normal in size, contour, and echogenicity. Renal cortical thickness is normal. 2 small 3 mm stones in the midpole. No focal parenchymal lesions or hydronephrosis. LEFT KIDNEY: 10.8 x 4.7 x 4.5 cm (SAG x AP x TRV). The kidney is normal in size, contour, and echogenicity. Renal cortical thickness is normal. 5 mm stone in the upper pole. No focal parenchymal lesions or hydronephrosis. US/US renal BI IMPRESSION: Bilateral renal stones.
== END 2023-02-04 15:38 | disposition home or self-care (01) ==
LOC: HO.US 15:37
PROVIDERS: PCP Nurse Practitioner Family; Visit Provider Urology
DX: N20.0 Calculus of kidney (principal)
CPT/HCPCS: 76775

== ENCOUNTER 2023-02-14 12:50 | Outpatient (REF) | payer BC, SELFPAY | END 2023-02-14 12:51 | disposition home or self-care (01) | LOC: HO.MDS 12:50 | PROVIDERS: Visit Provider Internal Medicine | DX: D50.8 Other iron deficiency anemias (principal) | CPT/HCPCS: 96365; J1756 ==

== ENCOUNTER 2023-02-16 08:30 | Outpatient (AMB) | payer BC, SELFPAY ==
--- NOTE | 2023-02-16 08:56 | A.OFFVIS_ITS ---
Intake Intake Visit Reasons: 6m/US(SET) Intake Note: Patient is present for Follow Up US Urology Med: None Antibiotic Allergy: None Blood Thinner: None Pharmacy: [facility] Allergies Iodinated Contrast Media Allergy (Unknown, Verified 02/16/23 08:57) Unknown Latex, Natural Rubber Allergy (Verified 02/16/23 08:57) Unknown shell fish Allergy (Uncoded 02/16/23 08:57) Unknown Medication List - Last Reconciled 02/16/23 by Johnie Reynolds MD No Known Home Meds HPI HPI Comments History of Present Illness Details Chaka is a pleasant female. She is seen for the following urologic conditions - nephrolithiasis - pyelonephritis Minimal stone burden on imaging Does have occasional flank tenderness Continue fluids Twelve month follow-up Pyelonephritis Remains on suppression antibiotics Nephrolithiasis Presented through the emergency room with left-sided flank pain 09/25 CT imaging with multiple stones on left side 4 mm stone obstructing left proximal ureter and 1.6 cm stone in left lower pole, punctate stones right side Interventions - 10/25 left ureteroscopy with laser lith otripsy Stone composition - 10/25 triple phosphate and carbonate ap atite Imaging - 01/25 renal ultrasound right 4 mm, left 8 mm - 01/26 renal ultrasound bilateral 2-3 mm stones Therapeutic plan - prior suppression antibiotics for 6 mo [facility] Medical History Obesity, Class I, BMI 30.0-34.9 (see actual BMI) Menorrhagia with irregular cycle History of kidney stones History of sepsis Anemia Kidney stone Surgical History History of section H/O tubal ligation Previous section Family History Maternal Grandfather Cancer Mother Skin cancer Social History Household Members: Family Housing: House Do you presently have visiting nurse or other home services: No Alcohol intake: current Alcohol intake frequency: holidays/special occasions only Alcohol type: wine Patient Tobacco Use Status: Never used Tobacco Advance Directives Date on File: 09/24/21 service: No Current occupational status: employed Review of Systems Const Denies chills and Denies fever(s) Card Reports no additional complaints and Denies syncope Resp Denies cough GI Denies abdominal pain and Denies heartburn Reports as per HPI and Denies change in libido Neuro Denies syncope Psych Denies change in libido Endo Denies change in libido Physical Exam Const General: cooperative, healthy appearing, comfortable and no acute distress Orientation/consciousness: patient oriented x3 HEENT Face and sinus: Yes normal facial exam Mouth: moist mucous membranes Neck Neck: Yes normal visual inspection, Yes full ROM and Yes trachea midline Chest Chest palpation & inspection: normal inspection of the chest Resp Effort & Inspection: normal respiratory effort, able to speak in complete sentences and no respiratory distress GI Inspection: Yes normal to inspection Back/Spine/Pelvis Cervical Spine: normal cervical lordosis Thoracic/Lumbar Spine: thoracic and lumbar spine normal to inspection Skin General skin exam: no rashes or lesions noted Neuro General: patient oriented x3, gait normal, tone normal and moves all extremities Extrem General: Yes normal to inspection and Yes capillary refill normal Assessment & Plan Assessment & Plan (1) Pyelonephritis: Code(s): N12 - Tubulo-interstitial nephritis, not specified as acute or chronic (2) Nephrolithiasis: Comment: 10/25 1.5 cm left stone triple phosphate Code(s): N20.0 - Calculus of kidney Plan Twelve month follow-up imaging Orders: Orders US renal BI 364 Days N20.0 - Calculus of kidney Patient Instructions: Imaging studies, laboratory and physical exam results were discussed and re viewed in detail. No major barriers to patient understanding were identified. An opportunity to ask questions regarding the treatment plan was provided. All questions were answered. The patient expressed understanding and agreement with the above treatment plan. The patient is aware they should contact our office by phone for worsening of their current condition or the appearance of new urologic symptoms. Compliance is encouraged with any medications and followup testing that is ordered. It is a privilege to participate in the urologic care of your patient. If you have any questions or concerns regarding treatment for the above conditions, or other urologic issues, please do not hesitate to contact me. The office telephone contact is [phone]. This note is constructed using voice recognition software. While every effort has been made to ensure accuracy wave soldering machine operator errors may have been included. Yours sincerely, Dr Johnie Reynolds MD, [facility] - Urology Providers of Expert, Compassionate Care for the Genitourinary System Coding Level of Care Code Est Pt Level 3 (51237) Diagnoses Pyelonephritis N12 Nephrolithiasis N20.0
== END 2023-02-16 09:11 | disposition home or self-care (01) ==
PROVIDERS: PCP Nurse Practitioner Family; Visit Provider Urology
DX: N12 Tubulo-interstitial nephritis, not specified as acute or chronic (principal); N20.0 Calculus of kidney
CPT/HCPCS: 99213

== ENCOUNTER 2023-02-21 07:26 | Outpatient (REF) | payer BC, SELFPAY | END 2023-02-21 07:27 | disposition home or self-care (01) | LOC: HO.MDS 07:26 | PROVIDERS: Visit Provider Internal Medicine | DX: D50.8 Other iron deficiency anemias (principal) | CPT/HCPCS: 96365; J1756 ==

== ENCOUNTER 2023-03-03 07:26 | Outpatient (REF) | payer BC, SELFPAY | END 2023-03-03 07:27 | disposition home or self-care (01) | LOC: HO.MDS 07:26 | PROVIDERS: Visit Provider Internal Medicine | DX: D50.8 Other iron deficiency anemias (principal) | CPT/HCPCS: 96374; J1756 ==

== ENCOUNTER 2023-03-07 07:29 | Outpatient (REF) | payer BC, SELFPAY | END 2023-03-07 07:30 | disposition home or self-care (01) | LOC: HO.MDS 07:29 | PROVIDERS: Visit Provider Internal Medicine | DX: D50.8 Other iron deficiency anemias (principal) | CPT/HCPCS: 96365; J1756 ==

== ENCOUNTER 2023-03-15 07:28 | Outpatient (REF) | payer BC, SELFPAY | END 2023-03-15 07:29 | disposition home or self-care (01) | LOC: HO.MDS 07:28 | PROVIDERS: Visit Provider Internal Medicine | DX: D50.8 Other iron deficiency anemias (principal) | CPT/HCPCS: 96374; J1756 ==

== ENCOUNTER → 2024-07-08 21:45 | Outpatient (BNV) | payer BC, SELFPAY | PROVIDERS: Emergency Provider Emergency Medicine; PCP Nurse Practitioner Family; Visit Provider Internal Medicine Cardiovascular Disease | DX: R94.31 Abnormal electrocardiogram [ECG] [EKG] (principal); R00.0 Tachycardia, unspecified | CPT/HCPCS: 93010 ==